=== PATIENT | male | born 1965 | race Caucasian/White ===

== ENCOUNTER 2017-06-19 10:01 | Inpatient (IN) | payer OTHER ==
[2017-06-19 11:59] VITALS: BMI 29.5
--- NOTE | 2017-06-19 12:17 | HP ---
COWS - Scale Resting Pulse: 0= [place] 80 or Below Sweatin=Flushed/Facial Moisture Restless Observation: 1= Difficult to Sit Still Pupil Size: 0= Normal to Room Light Bone or Joint Aches: 2= Severe Diffuse Aches Runny Nose/ Eye Tearin= Runny Nose/Eyes GI Upset > 30mins: 2= Nausea/Diarrhea Tremor Observation: 2= Slight Tremor Visible Yawning Observation: 2= >3x During Session Anxiety or Irritability: 2=Irritable/Anxious Goose Flesh Skin: 3=Piloerection COWS Score: 18 Admission ROS S - HPI Chief Complaint: I need help to stop using heroin. Allergies/Adverse Reactions: Allergies Allergy/AdvReac Type Severity Reaction Status Date / Time No Known Allergies Allergy Verified 06/19/17 12:03 History of Present Illness: pt is a 51yr old male with a history of opioid dependence seeking detox for treatment. Exam Limitations: No Limitations - Ebola screening Have you traveled outside of the country in the last 21 days: No Have you had contact with anyone from an Ebola affected area: No Have you been sick,other than usual withdrawal symptoms: No Do you have a fever: No - Review of Systems Constitutional: Chills, Diaphoresis, Night Sweats EENT: reports: Blurred Vision, Tearing, Nose Congestion Respiratory: reports: Cough Cardiac: reports: No Symptoms Reported GI: reports: Constipated, Diarrhea, Nausea, Poor Appetite, Poor Fluid Intake : reports: No Symptoms Reported Musculoskeletal: reports: Back Pain, Joint Pain, Muscle Pain Integumentary: reports: Flushing, Sweating Neuro: reports: Tingling, Tremors Endocrine: reports: Excessive Sweating, Flushing, Intolerance to Cold, Intolerance to Heat Hematology: reports: No Symptoms Reported Psychiatric: reports: Judgement Intact, Mood/Affect Appropiate, Orientated x3, Agitated, Anxious Other Systems: Reviewed and Negative Patient History - Patient Medical History Hx Anemia: No Hx Asthma: Yes Hx Chronic Obstructive Pulmonary Disease (COPD): No Hx Cancer: No Hx Cardiac Disorders: No Hx Congestive Heart Failure: No Hx Hypertension: No Hx Hypercholesterolemia: No Hx Pacemaker: No HX Cerebrovascular Accident: No Hx Seizures: No Hx Dementia: No Hx Diabetes: No Hx Gastrointestinal Disorders: No Hx Liver Disease: No Hx Genitourinary Disorders: No Hx Sexually Transmitted Disorders: No Hx Renal Disease (ESRD): No Hx Thyroid Disease: No Hx Human Immunodeficiency Virus (HIV): No (negative) Hx Hepatitis C: No Hx Depression: Yes Hx Suicide Attempt: No (denies) Hx Bipolar Disorder: Yes (gives some hx. but not ever medicated ) Hx Schizophrenia: No - Patient Surgical History Past Surgical History: Yes Hx Neurologic Surgery: No Hx Cataract Extraction: No Hx Cardiac Surgery: No Hx Lung Surgery: No Hx Breast Surgery: No Hx Breast Biopsy: No Hx Abdominal Surgery: No Hx Appendectomy: No Hx Cholecystectomy: No Hx Genitourinary Surgery: No Hx Section: No Hx Orthopedic Surgery: Yes (age 15, L knee surgery) Other Surgical History: L knee sx at age 15 yrs old Anesthesia Reaction: No - PPD History Previous Implant?: Yes Documented Results: Positive w/o proof PPD to be Administered?: No - Reproductive History Patient is a Female of Child Bearing Age (11 -55 yrs old): No - Smoking Cessation Smoking history: Current every day smoker Have you smoked in the past 12 months: Yes Aproximately how many cigarettes per day: 10 Hx Chewing Tobacco Use: No Initiated information on smoking cessation: Yes 'Breaking Loose' booklet given: 06/19/17 - Substance & Tx. History Hx Alcohol Use: Yes Hx Substance Use: Yes Substance Use Type: Cocaine, Heroin Hx Substance Use Treatment: Yes (last detox [facility] 2013) - Substances Abused Cocaine Route: Injection Frequency: Daily Amount used: $90 Age of first use: 15 Date of Last Use: 06/18/17 Heroin Route: Injection Frequency: Daily Amount used: 7 bags Age of first use: 12 Date of Last Use: 06/18/17 Family Disease History - Family Disease History Family History: Denies Family Disease History: Other: Father (etoh/drug abuse), Mother (etoh/drug abuse ) Admission Physical Exam BHS - Vital Signs Vital Signs: Vital Signs - 24 hr 06/19/17 11:58 Temperature 98.6 F Pulse Rate 72 Respiratory 20 Rate Blood Pressure 167/89 - Physical General Appearance: Yes: Appropriately Dressed, Moderate Distress, Tremorous, Irritable, Sweating, Anxious HEENTM: Yes: Normal Voice, Nasal Congestion, Rhinorrhea Respiratory: Yes: Lungs Clear, Normal Breath Sounds, No Respiratory Distress Neck: Yes: No masses,lesions,Nodules Breast: Yes: Within Normal Limits Cardiology: Yes: Regular Rhythm, Regular Rate, S1, S2 Abdominal: Yes: Normal Bowel Sounds, Non Tender, Soft Genitourinary: Yes: Within Normal Limits Back: Yes: Normal Inspection Musculoskeletal: Yes: full range of Motion Extremities: Yes: Normal Inspection, Tremors Neurological: Yes: Fully Oriented, Alert, Normal Response Integumentary: Yes: Normal Color, Diaphoresis, Track [place] Lymphatic: Yes: Within Normal Limits - Diagnostic (1) Opioid dependence with withdrawal Current Visit: Yes Status: Chronic (2) Hepatitis C carrier Current Visit: Yes Status: Chronic (3) Low back pain Current Visit: Yes Status: Chronic (4) Cocaine dependence Current Visit: Yes Status: Acute Qualifiers: Substance use status: uncomplicated Qualified Code(s): F14.20 - Cocaine dependence, uncomplicated (5) Nicotine dependence Current Visit: Yes Status: Chronic Qualifiers: Nicotine product type: cigarettes Cleared for Admission [facility] - Detox or Rehab [facility] Level of Care: Medically Managed Detox Regimen/Protocol: Methadone [facility] Breath Alcohol Content Breath Alcohol Content: 0 Urine Drug Screen - Results Drug Screen Negative: No Urine Drug Screen Results: JESUS MANUEL-Cocaine, OPI-Opiates
[2017-06-19] MEDS ORDERED: LOPERAMIDE HCL 2 MG CAPSULE PO PRN (12:23)
[2017-06-19] MEDS ORDERED: MAGNESIUM CITRATE 300 ML BOTTLE PO PRN (12:23)
[2017-06-19] MEDS ORDERED: P-EPHED 60MG/TRIPROLIDI 2.5MG TABLET PO PRN (12:23)
[2017-06-19] MEDS ORDERED: NICOTINE POLACRILEX 4 MG GUM BUC PRN (12:23)
[2017-06-19] MEDS ORDERED: MENTHOL/PHENOL 1 EACH UD MM PRN (12:23)
[2017-06-19] MEDS ORDERED: MAGNESIUM HYDROX 2400MG/30ML ORAL SUSPENSION 30 ML CUP PO PRN (12:23)
[2017-06-19] MEDS ORDERED: MAG HYDROX/AL HYDROX/SIMETH 30 ML UNIT-DOSE CUP PO PRN (12:23)
[2017-06-19] MEDS ORDERED: ALBUTEROL SO4 18 GM HFA INHALER IH PRN (12:24)
[2017-06-19] MEDS ORDERED: METHADONE HCL 10 MG TABLET (FOR DETOX USE ONLY) PO ONE ×2 (13:00→23:00)
[2017-06-19] MEDS: diazePAM 5 MG TABLET PO PRN (13:35)
[2017-06-19] MEDS: hydrOXYzine PAMOATE 50 MG CAPSULE (FP) PO PRN (15:14)
[2017-06-19 17:12] LABS: URINE APPEARANCE CLEAR; URINE BILIRUBIN NEGATIVE (NEGATIVE); URINE BLOOD NEGATIVE (NEGATIVE); URINE COLOR YELLOW; URINE GLUCOSE (UA) NEGATIVE (NEGATIVE); URINE KETONE NEGATIVE (NEGATIVE); URINE LEUK ESTERASE NEGATIVE (NEGATIVE); URINE NITRITE NEGATIVE (NEGATIVE); URINE PROTEIN NEGATIVE (NEGATIVE)
[2017-06-19] MEDS: THIAMINE HCL 100 MG TABLET (FP) PO SCH (22:28)
[2017-06-19] MEDS: LIDOCAINE PATCH REMOVAL MC SCH (22:28)
[2017-06-20] MEDS: diazePAM 5 MG TABLET PO PRN ×4 (04:20→22:48)
[2017-06-20] MEDS: guaiFENesin/D-METHORPHAN HB 10 ML UNIT-DOSE CUPS PO PRN ×2 (04:21→18:06)
[2017-06-20] MEDS: hydrOXYzine PAMOATE 50 MG CAPSULE (FP) PO PRN ×2 (07:40→22:48)
[2017-06-20] MEDS: IBUPROFEN 400 MG TABLET (FP) PO PRN (08:49)
[2017-06-20] MEDS ORDERED: cloNIDine HCL 0.1 MG TABLET PO ONE (08:52)
[2017-06-20] MEDS ORDERED: CYCLOBENZAPRINE HCL 10 MG TABLET (FP) PO ONE (08:53)
[2017-06-20] MEDS: PRENATAL VITAMINS W/ FOLIC ACID TABLET (FP) PO SCH (09:51)
[2017-06-20] MEDS: cloNIDine HCL 0.1 MG TABLET PO SCH ×2 (09:52→22:48)
[2017-06-20] MEDS: LIDOCAINE 5% TOPICAL PATCH TP SCH (09:54)
[2017-06-20] MEDS: NICOTINE 21 MG/24 HOURS TOPICAL PATCH TD SCH (09:54)
[2017-06-20] MEDS ORDERED: METHADONE HCL 10 MG TABLET (FOR DETOX USE ONLY) PO ONE (10:00)
[2017-06-20 10:21] LABS: HEMATOCRIT 34.7 % (35.4-49); HEMOGLOBIN 11.7 GM/dL (11.7-16.9); MCH 30.3 pg (25.7-33.7); MCHC 33.6 g/dl (32.0-35.9); MEAN CELL VOLUME 90.2 fl (80-96); MEAN PLT VOLUME 8.1 fl (7.5-11.1); PLATELET COUNT 166 K/MM3 (134-434); RBC 3.85 M/mm3 (4.00-5.60); RDW 14.4 % (11.9-15.9); WHITE BLOOD COUNT 4.8 K/mm3 (4.0-10.0)
[2017-06-20 10:23] LABS: ALBUMIN 3.4 g/dl (3.4-5.0); ANION GAP 8 (8-16); BLOOD UREA NITROGEN 22 mg/dL (7-18); CHLORIDE 107 mmol/L (98-107); CO2 23 mmol/L (21-32); GLUCOSE,RANDOM 98 mg/dL (74-106); POTASSIUM 4.2 mmol/L (3.5-5.1); SGOT/AST 37 U/L (15-37); SGPT/ALT 35 U/L (12-78); SODIUM 138 mmol/L (136-145)
[2017-06-20 10:25] LABS: ALK PHOS 93 U/L (45-117); BILIRUBIN,TOTAL 0.5 mg/dL (0.2-1.0); CALCIUM 8.2 mg/dL (8.5-10.1); CREATININE 0.9 mg/dL (0.7-1.3); TOT PROT 7.2 g/dl (6.4-8.2)
--- NOTE | 2017-06-20 11:11 | PN ---
BHS COWS - Scale Resting Pulse: 0= [place] 80 or Below Sweatin= Chills/Flushing Restless Observation: 3= Extraneous Movement Pupil Size: 1= Pupils >than Normal Bone or Joint Aches: 2= Severe Diffuse Aches Runny Nose/ Eye Tearin= Runny Nose/Eyes GI Upset > 30mins: 3= Vomiting/Diarrhea Tremor Observation of Outstretched Hands: 2= Slight Tremor Visible Yawning Observation: 1= 1-2x During Session Anxiety or Irritability: 2=Irritable/Anxious Goose Flesh Skin: 0=Smooth Skin COWS Score: 17 S Progress Note (SOAP) Subjective: ALERT,IRRITABLE,ANXIOUS,INTERRUPTED SLEEP,PAIN IN THE BODY AND BACK,TRMOR Objective: 06/20/17 11:08 Vital Signs Temperature 98.1 F 06/20/17 10:09 Pulse Rate 79 06/20/17 10:09 Respiratory Rate 20 06/20/17 10:09 Blood Pressure 150/89 06/20/17 10:09 O2 Sat by Pulse Oximetry (%) EKG NSR,NORMAL ECG Laboratory Last Values WBC 4.8 K/mm3 (4.0-10.0) 06/20/17 07:30 RBC 3.85 M/mm3 (4.00-5.60) L 06/20/17 07:30 Hgb 11.7 GM/dL (11.7-16.9) 06/20/17 07:30 Hct 34.7 % (35.4-49) L 06/20/17 07:30 MCV 90.2 fl (80-96) 06/20/17 07:30 MCH 30.3 pg (25.7-33.7) 06/20/17 07:30 MCHC 33.6 g/dl (32.0-35.9) 06/20/17 07:30 RDW 14.4 % (11.9-15.9) 06/20/17 07:30 Plt Count 166 K/MM3 (134-434) 06/20/17 07:30 MPV 8.1 fl (7.5-11.1) D 06/20/17 07:30 Sodium 138 mmol/L (136-145) 06/20/17 07:30 Potassium 4.2 mmol/L (3.5-5.1) 06/20/17 07:30 Chloride 107 mmol/L (98-107) 06/20/17 07:30 Carbon Dioxide 23 mmol/L (21-32) 06/20/17 07:30 Anion Gap 8 (8-16) 06/20/17 07:30 BUN 22 mg/dL (7-18) H D 06/20/17 07:30 Creatinine 0.9 mg/dL (0.7-1.3) 06/20/17 07:30 Creat Clearance w eGFR > 60 (>60) 06/20/17 07:30 Random Glucose 98 mg/dL (74-106) D 06/20/17 07:30 Calcium 8.2 mg/dL (8.5-10.1) L 06/20/17 07:30 Total Bilirubin 0.5 mg/dL (0.2-1.0) D 06/20/17 07:30 AST 37 U/L (15-37) D 06/20/17 07:30 ALT 35 U/L (12-78) D 06/20/17 07:30 Alkaline Phosphatase 93 U/L (45-117) D 06/20/17 07:30 Total Protein 7.2 g/dl (6.4-8.2) 06/20/17 07:30 Albumin 3.4 g/dl (3.4-5.0) 06/20/17 07:30 Urine Color Yellow 06/19/17 15:50 Urine Appearance Clear 06/19/17 15:50 Urine pH 5.0 (5.0-8.0) 06/19/17 15:50 Ur Specific [place] 1.025 (1.001-1.035) 06/19/17 15:50 Urine Protein Negative (NEGATIVE) 06/19/17 15:50 Urine Glucose (UA) Negative (NEGATIVE) 06/19/17 15:50 Urine Ketones Negative (NEGATIVE) 06/19/17 15:50 Urine Blood Negative (NEGATIVE) 06/19/17 15:50 Urine Nitrite Negative (NEGATIVE) 06/19/17 15:50 Urine Bilirubin Negative (NEGATIVE) 06/19/17 15:50 Urine Urobilinogen 2.0 mg/dL (0.2-1.0) 06/19/17 15:50 Ur Leukocyte Esterase Negative (NEGATIVE) 06/19/17 15:50 06/20/17 11:10 LABS PENDING Assessment: 06/20/17 11:10 WITHDRAWAL SYMPTOM Plan: CONTINUE DETOX,ENCOURAGE ORAL FLUID
--- NOTE | 2017-06-20 12:15 | EKG ---
Test Reason : Blood Pressure : / mmHG Vent. Rate : 074 BPM Atrial Rate : 074 BPM P-R Int : 168 ms QRS Dur : 082 ms QT Int : 400 ms P-R-T Axes : 043 071 056 degrees QTc Int : 444 ms NORMAL SINUS RHYTHM NORMAL ECG NO PREVIOUS ECGS AVAILABLE Confirmed by LEANNA MARCH MD ([id number]) on 06/20/2017 12:14:33 PM Referred By: Confirmed By:LEANNA MARCH MD
[2017-06-20] MEDS: CYCLOBENZAPRINE HCL 10 MG TABLET (FP) PO PRN (18:06)
[2017-06-20] MEDS: THIAMINE HCL 100 MG TABLET (FP) PO SCH (22:48)
[2017-06-20] MEDS: LIDOCAINE PATCH REMOVAL MC SCH (22:51)
[2017-06-21] MEDS: guaiFENesin/D-METHORPHAN HB 10 ML UNIT-DOSE CUPS PO PRN ×2 (00:45→21:16)
[2017-06-21] MEDS: CYCLOBENZAPRINE HCL 10 MG TABLET (FP) PO PRN ×2 (01:14→21:14)
[2017-06-21] MEDS: diazePAM 5 MG TABLET PO PRN ×2 (02:34→21:14)
[2017-06-21] MEDS: hydrOXYzine PAMOATE 50 MG CAPSULE (FP) PO PRN ×2 (04:18→23:55)
[2017-06-21] MEDS: IBUPROFEN 400 MG TABLET (FP) PO PRN ×2 (05:07→21:14)
[2017-06-21] MEDS ORDERED: METHADONE HCL 5 MG TABLET (FOR DETOX USE ONLY) PO ONE (10:00)
[2017-06-21] MEDS: LIDOCAINE 5% TOPICAL PATCH TP SCH (11:00)
[2017-06-21] MEDS: cloNIDine HCL 0.1 MG TABLET PO SCH ×2 (11:00→21:14)
[2017-06-21] MEDS: NICOTINE 21 MG/24 HOURS TOPICAL PATCH TD SCH (11:00)
[2017-06-21] MEDS: PRENATAL VITAMINS W/ FOLIC ACID TABLET (FP) PO SCH (11:00)
--- NOTE | 2017-06-21 11:30 | PN ---
BHS COWS - Scale Resting Pulse: 0= [place] 80 or Below Sweatin= Chills/Flushing Restless Observation: 3= Extraneous Movement Pupil Size: 2= Moderately Dilated Bone or Joint Aches: 2= Severe Diffuse Aches Runny Nose/ Eye Tearin= Runny Nose/Eyes GI Upset > 30mins: 2= Nausea/Diarrhea Tremor Observation of Outstretched Hands: 2= Slight Tremor Visible Yawning Observation: 1= 1-2x During Session Anxiety or Irritability: 2=Irritable/Anxious Goose Flesh Skin: 0=Smooth Skin COWS Score: 17 BHS Progress Note (SOAP) Subjective: ALERT,IRRITABLE,ANXIOUS,INTERRUPTED SLEEP,TREMOR Objective: 06/21/17 11:29 Vital Signs Temperature 98.9 F 06/21/17 11:23 Pulse Rate 68 06/21/17 11:23 Respiratory Rate 18 06/21/17 11:23 Blood Pressure 142/86 06/21/17 11:23 O2 Sat by Pulse Oximetry (%) Laboratory Last Values WBC 4.8 K/mm3 (4.0-10.0) 06/20/17 07:30 RBC 3.85 M/mm3 (4.00-5.60) L 06/20/17 07:30 Hgb 11.7 GM/dL (11.7-16.9) 06/20/17 07:30 Hct 34.7 % (35.4-49) L 06/20/17 07:30 MCV 90.2 fl (80-96) 06/20/17 07:30 MCH 30.3 pg (25.7-33.7) 06/20/17 07:30 MCHC 33.6 g/dl (32.0-35.9) 06/20/17 07:30 RDW 14.4 % (11.9-15.9) 06/20/17 07:30 Plt Count 166 K/MM3 (134-434) 06/20/17 07:30 MPV 8.1 fl (7.5-11.1) D 06/20/17 07:30 Sodium 138 mmol/L (136-145) 06/20/17 07:30 Potassium 4.2 mmol/L (3.5-5.1) 06/20/17 07:30 Chloride 107 mmol/L (98-107) 06/20/17 07:30 Carbon Dioxide 23 mmol/L (21-32) 06/20/17 07:30 Anion Gap 8 (8-16) 06/20/17 07:30 BUN 22 mg/dL (7-18) H D 06/20/17 07:30 Creatinine 0.9 mg/dL (0.7-1.3) 06/20/17 07:30 Creat Clearance w eGFR > 60 (>60) 06/20/17 07:30 Random Glucose 98 mg/dL (74-106) D 06/20/17 07:30 Calcium 8.2 mg/dL (8.5-10.1) L 06/20/17 07:30 Total Bilirubin 0.5 mg/dL (0.2-1.0) D 06/20/17 07:30 AST 37 U/L (15-37) D 06/20/17 07:30 ALT 35 U/L (12-78) D 06/20/17 07:30 Alkaline Phosphatase 93 U/L (45-117) D 06/20/17 07:30 Total Protein 7.2 g/dl (6.4-8.2) 06/20/17 07:30 Albumin 3.4 g/dl (3.4-5.0) 06/20/17 07:30 Urine Color Yellow 06/19/17 15:50 Urine Appearance Clear 06/19/17 15:50 Urine pH 5.0 (5.0-8.0) 06/19/17 15:50 Ur Specific [place] 1.025 (1.001-1.035) 06/19/17 15:50 Urine Protein Negative (NEGATIVE) 06/19/17 15:50 Urine Glucose (UA) Negative (NEGATIVE) 06/19/17 15:50 Urine Ketones Negative (NEGATIVE) 06/19/17 15:50 Urine Blood Negative (NEGATIVE) 06/19/17 15:50 Urine Nitrite Negative (NEGATIVE) 06/19/17 15:50 Urine Bilirubin Negative (NEGATIVE) 06/19/17 15:50 Urine Urobilinogen 2.0 mg/dL (0.2-1.0) 06/19/17 15:50 Ur Leukocyte Esterase Negative (NEGATIVE) 06/19/17 15:50 RPR Titer Nonreactive (NONREACTIVE) 06/20/17 07:30 HIV 1&2 Antibody Screen Negative 06/19/17 07:30 HIV P24 Antigen Negative 06/19/17 07:30 Assessment: 06/21/17 11:30 WITHDRAWAL SYMPTOM Plan: CONTINUE DETOX,ENCOURAGE ORAL FLUID
[2017-06-21] MEDS: THIAMINE HCL 100 MG TABLET (FP) PO SCH (21:14)
[2017-06-21] MEDS: LIDOCAINE PATCH REMOVAL MC SCH (22:41)
[2017-06-21] MEDS: ACETAMINOPHEN 325 MG TABLET (FP) PO PRN (23:54)
[2017-06-22] MEDS: diazePAM 5 MG TABLET PO PRN (03:23)
[2017-06-22] MEDS ORDERED: METHADONE HCL 5 MG TABLET (FOR DETOX USE ONLY) PO ONE (10:00)
[2017-06-22] MEDS: PRENATAL VITAMINS W/ FOLIC ACID TABLET (FP) PO SCH (10:50)
[2017-06-22] MEDS: cloNIDine HCL 0.1 MG TABLET PO SCH ×2 (10:50→22:55)
[2017-06-22] MEDS: LIDOCAINE 5% TOPICAL PATCH TP SCH (10:51)
[2017-06-22] MEDS: NICOTINE 21 MG/24 HOURS TOPICAL PATCH TD SCH (10:51)
[2017-06-22] MEDS: ACETAMINOPHEN 325 MG TABLET (FP) PO PRN ×2 (10:54→17:30)
[2017-06-22] MEDS: CYCLOBENZAPRINE HCL 10 MG TABLET (FP) PO PRN ×2 (10:54→22:55)
[2017-06-22] MEDS ORDERED: LIDOCAINE VISCOUS 2% ORAL/TOP 20 ML UNIT-DOSE CUP MM ONE (11:21)
[2017-06-22] MEDS: IBUPROFEN 400 MG TABLET (FP) PO PRN ×2 (11:23→22:58)
[2017-06-22] MEDS ORDERED: LIDOCAINE VISCOUS 2% ORAL/TOP 20 ML UNIT-DOSE CUP MM PRN (12:39)
--- NOTE | 2017-06-22 12:43 | PN ---
BHS Progress Note (SOAP) Subjective: sleepness shakes toothache Objective: 06/22/17 12:41 eating in dayroom, able to swallow tender to lower molar area No acute distress noted Assessment: 06/22/17 12:42 withdrawal sx toothache Plan: continue detox Lidocaine with and swallow
[2017-06-22] MEDS: guaiFENesin/D-METHORPHAN HB 10 ML UNIT-DOSE CUPS PO PRN (17:29)
[2017-06-22] MEDS: hydrOXYzine PAMOATE 50 MG CAPSULE (FP) PO PRN ×2 (19:08→22:55)
[2017-06-22] MEDS: THIAMINE HCL 100 MG TABLET (FP) PO SCH (22:54)
[2017-06-22] MEDS: LIDOCAINE PATCH REMOVAL MC SCH (22:55)
[2017-06-23] MEDS: hydrOXYzine PAMOATE 50 MG CAPSULE (FP) PO PRN (02:39)
[2017-06-23] MEDS ORDERED: METHADONE HCL 10 MG TABLET (FOR DETOX USE ONLY) PO ONE (10:00)
[2017-06-23] MEDS: cloNIDine HCL 0.1 MG TABLET PO SCH ×2 (10:45→22:26)
[2017-06-23] MEDS: PRENATAL VITAMINS W/ FOLIC ACID TABLET (FP) PO SCH (10:45)
[2017-06-23] MEDS: LIDOCAINE 5% TOPICAL PATCH TP SCH (10:46)
[2017-06-23] MEDS: NICOTINE 21 MG/24 HOURS TOPICAL PATCH TD SCH (10:46)
[2017-06-23] MEDS: IBUPROFEN 400 MG TABLET (FP) PO PRN ×2 (10:49→19:44)
[2017-06-23] MEDS: guaiFENesin/D-METHORPHAN HB 10 ML UNIT-DOSE CUPS PO PRN ×2 (10:49→22:27)
--- NOTE | 2017-06-23 11:40 | PN ---
S Progress Note (SOAP) Subjective: alert oriented x 3 mild joint aches no sweat calm less irritable Objective: 06/23/17 11:39 Vital Signs Temperature 97.5 F L 06/23/17 06:00 Pulse Rate 64 06/23/17 06:00 Respiratory Rate 18 06/23/17 06:00 Blood Pressure 98/66 06/23/17 06:00 O2 Sat by Pulse Oximetry (%) Laboratory Last Values WBC 4.8 K/mm3 (4.0-10.0) 06/20/17 07:30 RBC 3.85 M/mm3 (4.00-5.60) L 06/20/17 07:30 Hgb 11.7 GM/dL (11.7-16.9) 06/20/17 07:30 Hct 34.7 % (35.4-49) L 06/20/17 07:30 MCV 90.2 fl (80-96) 06/20/17 07:30 MCH 30.3 pg (25.7-33.7) 06/20/17 07:30 MCHC 33.6 g/dl (32.0-35.9) 06/20/17 07:30 RDW 14.4 % (11.9-15.9) 06/20/17 07:30 Plt Count 166 K/MM3 (134-434) 06/20/17 07:30 MPV 8.1 fl (7.5-11.1) D 06/20/17 07:30 Sodium 138 mmol/L (136-145) 06/20/17 07:30 Potassium 4.2 mmol/L (3.5-5.1) 06/20/17 07:30 Chloride 107 mmol/L (98-107) 06/20/17 07:30 Carbon Dioxide 23 mmol/L (21-32) 06/20/17 07:30 Anion Gap 8 (8-16) 06/20/17 07:30 BUN 22 mg/dL (7-18) H D 06/20/17 07:30 Creatinine 0.9 mg/dL (0.7-1.3) 06/20/17 07:30 Creat Clearance w eGFR > 60 (>60) 06/20/17 07:30 Random Glucose 98 mg/dL (74-106) D 06/20/17 07:30 Calcium 8.2 mg/dL (8.5-10.1) L 06/20/17 07:30 Total Bilirubin 0.5 mg/dL (0.2-1.0) D 06/20/17 07:30 AST 37 U/L (15-37) D 06/20/17 07:30 ALT 35 U/L (12-78) D 06/20/17 07:30 Alkaline Phosphatase 93 U/L (45-117) D 06/20/17 07:30 Total Protein 7.2 g/dl (6.4-8.2) 06/20/17 07:30 Albumin 3.4 g/dl (3.4-5.0) 06/20/17 07:30 Urine Color Yellow 06/19/17 15:50 Urine Appearance Clear 06/19/17 15:50 Urine pH 5.0 (5.0-8.0) 06/19/17 15:50 Ur Specific [place] 1.025 (1.001-1.035) 06/19/17 15:50 Urine Protein Negative (NEGATIVE) 06/19/17 15:50 Urine Glucose (UA) Negative (NEGATIVE) 06/19/17 15:50 Urine Ketones Negative (NEGATIVE) 06/19/17 15:50 Urine Blood Negative (NEGATIVE) 06/19/17 15:50 Urine Nitrite Negative (NEGATIVE) 06/19/17 15:50 Urine Bilirubin Negative (NEGATIVE) 06/19/17 15:50 Urine Urobilinogen 2.0 mg/dL (0.2-1.0) 06/19/17 15:50 Ur Leukocyte Esterase Negative (NEGATIVE) 06/19/17 15:50 RPR Titer Nonreactive (NONREACTIVE) 06/20/17 07:30 HIV 1&2 Antibody Screen Negative 06/19/17 07:30 HIV P24 Antigen Negative 06/19/17 07:30 lab noted Assessment: 06/23/17 11:39 mild withdrawal sx Plan: medically supervised detox
[2017-06-23] MEDS: ACETAMINOPHEN 325 MG TABLET (FP) PO PRN (13:01)
[2017-06-23] MEDS: CYCLOBENZAPRINE HCL 10 MG TABLET (FP) PO PRN (13:01)
[2017-06-23] MEDS: METHYL SALICYLATE/MENTHOL OINT 30 GM TUBE TP SCH (14:00)
[2017-06-23] MEDS: THIAMINE HCL 100 MG TABLET (FP) PO SCH (22:26)
[2017-06-24] MEDS: LIDOCAINE PATCH REMOVAL MC SCH (00:05)
[2017-06-24] MEDS: METHYL SALICYLATE/MENTHOL OINT 30 GM TUBE TP SCH (00:05)
[2017-06-24] MEDS: hydrOXYzine PAMOATE 50 MG CAPSULE (FP) PO PRN (00:28)
[2017-06-24] MEDS ORDERED: METHADONE HCL 5 MG TABLET (FOR DETOX USE ONLY) PO ONE (06:00)
[2017-06-24 06:18] VITALS: TEMP 97.7
--- NOTE | 2017-06-24 08:49 | DS ---
[facility] Detox Discharge Summary Admission Date: 06/19/17 Discharge Date: 06/24/17 - History Present History: Cocaine Dependence, Opioid Dependence Additional Comments: follow up with after care program as arrangement Pertinent Past History: hepatitis c low back pain nicotine dependence - Physical Exam Results Vital Signs: Vital Signs Temperature 97.7 F 06/24/17 06:17 Pulse Rate 67 06/24/17 06:17 Respiratory Rate 18 06/24/17 06:17 Blood Pressure 118/68 06/24/17 06:17 O2 Sat by Pulse Oximetry (%) Pertinent Admission Physical Exam Findings: withdrawal symptom and finding - Treatment Hospital Course: Detox Protocol Followed, Detoxed Safely, Responded well, Discharged Condition Good, Rehab Referral Accepted Patient has Accepted a Rehab Referral to: [facility] - Medication Discharge Medications: Ambulatory Orders Albuterol Sulfate Inhaler - [Ventolin Hfa Inhaler -] 2 inh PO Q4H PRN 06/19/17 - Diagnosis (1) Opioid dependence with withdrawal Current Visit: Yes Status: Chronic (2) Cocaine dependence Current Visit: Yes Status: Acute Qualifiers: Substance use status: uncomplicated Qualified Code(s): F14.20 - Cocaine dependence, uncomplicated (3) Low back pain Current Visit: Yes Status: Chronic (4) Nicotine dependence Current Visit: Yes Status: Chronic Qualifiers: Nicotine product type: cigarettes (5) arthritis left knee Current Visit: No Status: Active (6) s/p artroscopic surgery left knee post trauma Current Visit: No Status: Active (7) Schizoaffective disorder Current Visit: No Status: Acute - AMA Did Patient Leave Against Medical Advice: No
[2017-06-24] MEDS: LIDOCAINE 5% TOPICAL PATCH TP SCH (09:20)
[2017-06-24] MEDS: PRENATAL VITAMINS W/ FOLIC ACID TABLET (FP) PO SCH (09:21)
[2017-06-24] MEDS: cloNIDine HCL 0.1 MG TABLET PO SCH (09:22)
[2017-06-24] MEDS: NICOTINE 21 MG/24 HOURS TOPICAL PATCH TD SCH (09:22)
[2017-06-24 10:39] VITALS: BP 122/73; PULSE 93
== END 2017-06-24 09:23 | disposition home or self-care (01) | DRG 773 ==
LOC: YASAS 10:01 → Y6N 12:48
PROVIDERS: ADMIT Internal Medicine; ATTEND Internal Medicine
PROC: HZ2ZZZZ Detoxification Services for Substance Abuse Treatment (ICD-10-PCS; principal; 2017-06-19)
DX: F11.23 Opioid dependence with withdrawal (principal); F14.20 Cocaine dependence, uncomplicated; F17.210 Nicotine dependence, cigarettes, uncomplicated; F25.9 Schizoaffective disorder, unspecified; M54.5 Low back pain; G89.29 Other chronic pain; M13.861 Other specified arthritis, right knee; K08.89 Other specified disorders of teeth and supporting structures; J45.909 Unspecified asthma, uncomplicated; B18.2 Chronic viral hepatitis C
CPT/HCPCS: 36415; 71046-TC-FY; 80053; 81003; 85027; 86593; 87389; 93005; 93010; J0735

== ENCOUNTER 2017-08-12 09:28 | Inpatient (IN) | payer OTHER ==
[2017-08-12 09:55] VITALS: BMI 28.8
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
[2017-08-12] MEDS ORDERED: MENTHOL/PHENOL 1 EACH UD MM PRN (12:34)
[2017-08-12] MEDS ORDERED: MAGNESIUM HYDROX 2400MG/30ML ORAL SUSPENSION 30 ML CUP PO PRN (12:34)
[2017-08-12] MEDS ORDERED: P-EPHED 60MG/TRIPROLIDI 2.5MG TABLET PO PRN (12:34)
[2017-08-12] MEDS ORDERED: MAGNESIUM CITRATE 300 ML BOTTLE PO PRN (12:34)
[2017-08-12] MEDS ORDERED: guaiFENesin/D-METHORPHAN HB 10 ML UNIT-DOSE CUPS PO PRN (12:34)
[2017-08-12] MEDS ORDERED: NICOTINE POLACRILEX 2 MG GUM BC PRN (12:34)
[2017-08-12] MEDS ORDERED: MAG HYDROX/AL HYDROX/SIMETH 30 ML UNIT-DOSE CUP PO PRN (12:34)
[2017-08-12] MEDS ORDERED: METHADONE HCL 10 MG TABLET (FOR DETOX USE ONLY) PO ONE ×2 (14:15→23:00)
--- NOTE | 2017-08-12 14:26 | CONSULT ---
[facility] Psychiatric Consult - Data Date of interview: 08/12/17 Admission source: [facility] Identifying data: This ios 51 years old male, single, father of two, living with Aunt, ambulating with cane, unemployed , on SSI, with psychiatric hospitalization history, history of Schizoaffective disorder, is here for detox from Opioids, Cocaine and Nicotine. Reports long history of opiate, nicotine dependence. Substance Abuse History: Urine Drug Screen Results: JESUS MANUEL-Cocaine, OPI-Opiates. - Smoking Cessation. Smoking history: Current every day smoker. Have you smoked in the past 12 months: Yes. Aproximately how many cigarettes per day: 10. Cigars Per Day: 0. Hx Chewing Tobacco Use: No. Initiated information on smoking cessation: Yes. 'Breaking Loose' booklet given: 08/12/17. - Substance & Tx. History. Hx Alcohol Use: No. Hx Substance Use: Yes. Substance Use Type : Opiates. Hx Substance Use Treatment: Yes (06/2017 [facility]) Medical History: Asthma, HepC+, Left knee arthritis Psychiatric History: Patient reports history of Schizoaffective disorder, reports p[sychiatric admission ojn 2017 at [facility] for safety, reports no medications taking priorm to admission,. patient minimizing psychiatric history. Physical/Sexual Abuse/Trauma History: Denies Additional Comment: Urine Drug Screen Results: JESUS AMNUEL-Cocaine, OPI-Opiates. Observation. Detox Unit Care Protocol Mental Status Exam - Mental Status Exam Alert and Oriented to: Person Cognitive Function: Fair Patient Appearance: Unkempt Mood: Anxious Affect: Labile Patient Behavior: Cooperative Speech Pattern: Appropriate Voice Loudness: Normal Thought Process: Circumstantial Thought Disorder: Being Controlled Hallucinations: Denies Suicidal Ideation: Denies Homicidal Ideation: Denies Insight/Judgement: Fair Sleep: Difficulty falling asleep Appetite: Fair Muscle strength/Tone: Mild Hypotonicity Gait/Station: Shuffling Additional Comments: Observation. Detox Unit Care Protocol Psychiatric Findings - Problem List ([place] 1, 2,3) (1) Drug-induced mood disorder Current Visit: Yes Status: Acute (2) Opioid dependence with withdrawal Current Visit: Yes Status: Acute (3) Nicotine dependence Current Visit: Yes Status: Chronic Qualifiers: Nicotine product type: cigarettes Substance use status: in withdrawal Qualified Code(s): F17.213 - Nicotine dependence, cigarettes, with withdrawal (4) Schizoaffective disorder Current Visit: Yes Status: Suspected Qualifiers: Schizoaffective disorder type: bipolar Qualified Code(s): F25.0 - Schizoaffective disorder, bipolar type (5) Opioid dependence Current Visit: No Status: Active (6) Cocaine dependence Current Visit: No Status: Acute Qualifiers: Substance use status: uncomplicated Qualified Code(s): F14.20 - Cocaine dependence, uncomplicated - Initial Treatment Plan Initial Treatment Plan: Observation. Detox Unit Care Protocol
[2017-08-12] MEDS: NICOTINE 14 MG/24 HOURS TOPICAL PATCH TD SCH (14:59)
[2017-08-12] MEDS: diazePAM 5 MG TABLET PO PRN ×2 (15:00→20:28)
[2017-08-12] MEDS: IBUPROFEN 400 MG TABLET (FP) PO PRN (17:44)
[2017-08-12 20:20] LABS: URINE APPEARANCE CLEAR; URINE BILIRUBIN NEGATIVE (<2.0 mg/dL); URINE BLOOD NEGATIVE (NEGATIVE); URINE COLOR YELLOW; URINE GLUCOSE (UA) NEGATIVE (NEGATIVE); URINE KETONE NEGATIVE (NEGATIVE); URINE LEUK ESTERASE NEGATIVE (NEGATIVE); URINE NITRITE NEGATIVE (NEGATIVE); URINE PROTEIN NEGATIVE (NEGATIVE); URINE UROBILINOGEN NEGATIVE mg/dL (0.2-1.0)
[2017-08-12] MEDS: THIAMINE HCL 100 MG TABLET (FP) PO SCH (22:14)
[2017-08-12] MEDS: MELATONIN 5 MG TABLETS PO PRN (22:15)
[2017-08-13] MEDS: diazePAM 5 MG TABLET PO PRN ×3 (05:36→22:47)
[2017-08-13] MEDS ORDERED: METHADONE HCL 10 MG TABLET (FOR DETOX USE ONLY) PO ONE (10:00)
[2017-08-13 10:05] LABS: HEMATOCRIT 33.4 % (35.4-49); HEMOGLOBIN 11.6 GM/dL (11.7-16.9); MCH 31.2 pg (25.7-33.7); MCHC 34.8 g/dl (32.0-35.9); MEAN CELL VOLUME 89.7 fl (80-96); MEAN PLT VOLUME 8.7 fl (7.5-11.1); PLATELET COUNT 165 K/MM3 (134-434); RBC 3.73 M/mm3 (4.00-5.60); RDW 13.8 % (11.9-15.9); WHITE BLOOD COUNT 4.4 K/mm3 (4.0-10.0)
[2017-08-13 10:13] LABS: CHLORIDE 105 mmol/L (98-107); POTASSIUM 4.1 mmol/L (3.5-5.1); SODIUM 137 mmol/L (136-145)
--- NOTE | 2017-08-13 10:15 | EKG ---
Test Reason : Blood Pressure : / mmHG Vent. Rate : 074 BPM Atrial Rate : 074 BPM P-R Int : 162 ms QRS Dur : 088 ms QT Int : 386 ms P-R-T Axes : 033 072 061 degrees QTc Int : 428 ms NORMAL SINUS RHYTHM NORMAL ECG WHEN COMPARED WITH ECG OF 19-JUN-2017 14:37, NO SIGNIFICANT CHANGE WAS FOUND Confirmed by Mathieu Tucker MD ([id number]) on 08/13/2017 10:14:43 AM Referred By: Confirmed By:Mathieu Tucker MD
[2017-08-13] MEDS: PRENATAL VITAMINS W/ FOLIC ACID TABLET (FP) PO SCH (10:22)
[2017-08-13] MEDS: ALBUTEROL SO4 18 GM HFA INHALER IH PRN (10:23)
[2017-08-13] MEDS: NICOTINE 14 MG/24 HOURS TOPICAL PATCH TD SCH (10:23)
[2017-08-13 10:37] LABS: ALBUMIN 3.8 g/dl (3.4-5.0); ALK PHOS 97 U/L (45-117); ANION GAP 6 (8-16); BILIRUBIN,TOTAL 0.3 mg/dL (0.2-1.0); BLOOD UREA NITROGEN 22 mg/dL (7-18); CALCIUM 8.4 mg/dL (8.5-10.1); CO2 26 mmol/L (21-32); CREATININE 1.3 mg/dL (0.7-1.3); GLUCOSE,RANDOM 117 mg/dL (74-106); SGOT/AST 31 U/L (15-37); SGPT/ALT 21 U/L (12-78); TOT PROT 7.8 g/dl (6.4-8.2)
--- NOTE | 2017-08-13 12:46 | PN ---
BHS COWS - Scale Resting Pulse: 0= ME 80 or Below Sweatin= Chills/Flushing Restless Observation: 3= Extraneous Movement Pupil Size: 0= Normal to Room Light Bone or Joint Aches: 4=Acute Joint/Muscle Pain Runny Nose/ Eye Tearin= Nasal Congestion GI Upset > 30mins: 1= Stomach Cramp Tremor Observation of Outstretched Hands: 2= Slight Tremor Visible Yawning Observation: 2= >3x During Session Anxiety or Irritability: 2=Irritable/Anxious Goose Flesh Skin: 0=Smooth Skin COWS Score: 16 BHS Progress Note (SOAP) Subjective: ANXIETY,SWEATS, "I'M DOPE SICK". Objective: 08/13/17 12:46 Vital Signs Temperature 97.9 F 08/13/17 09:14 Pulse Rate 75 08/13/17 09:14 Respiratory Rate 18 08/13/17 09:14 Blood Pressure 145/81 08/13/17 09:14 O2 Sat by Pulse Oximetry (%) Laboratory Last Values WBC 4.4 K/mm3 (4.0-10.0) 08/13/17 06:15 RBC 3.73 M/mm3 (4.00-5.60) L 08/13/17 06:15 Hgb 11.6 GM/dL (11.7-16.9) L 08/13/17 06:15 Hct 33.4 % (35.4-49) L 08/13/17 06:15 MCV 89.7 fl (80-96) 08/13/17 06:15 MCH 31.2 pg (25.7-33.7) 08/13/17 06:15 MCHC 34.8 g/dl (32.0-35.9) 08/13/17 06:15 RDW 13.8 % (11.9-15.9) 08/13/17 06:15 Plt Count 165 K/MM3 (134-434) 08/13/17 06:15 MPV 8.7 fl (7.5-11.1) 08/13/17 06:15 Sodium 137 mmol/L (136-145) 08/13/17 06:15 Potassium 4.1 mmol/L (3.5-5.1) 08/13/17 06:15 Chloride 105 mmol/L (98-107) 08/13/17 06:15 Carbon Dioxide 26 mmol/L (21-32) 08/13/17 06:15 Anion Gap 6 (8-16) L 08/13/17 06:15 BUN 22 mg/dL (7-18) H 08/13/17 06:15 Creatinine 1.3 mg/dL (0.7-1.3) D 08/13/17 06:15 Creat Clearance w eGFR 57.97 (>60) 08/13/17 06:15 Random Glucose 117 mg/dL (74-106) H 08/13/17 06:15 Calcium 8.4 mg/dL (8.5-10.1) L 08/13/17 06:15 Total Bilirubin 0.3 mg/dL (0.2-1.0) D 08/13/17 06:15 AST 31 U/L (15-37) 08/13/17 06:15 ALT 21 U/L (12-78) D 08/13/17 06:15 Alkaline Phosphatase 97 U/L (45-117) 08/13/17 06:15 Total Protein 7.8 g/dl (6.4-8.2) 08/13/17 06:15 Albumin 3.8 g/dl (3.4-5.0) 08/13/17 06:15 Urine Color Yellow 08/12/17 17:30 Urine Appearance Clear 08/12/17 17:30 Urine pH 5.0 (5.0-8.0) 08/12/17 17:30 Ur Specific [place] 1.020 (1.001-1.035) 08/12/17 17:30 Urine Protein Negative (NEGATIVE) 08/12/17 17:30 Urine Glucose (UA) Negative (NEGATIVE) 08/12/17 17:30 Urine Ketones Negative (NEGATIVE) 08/12/17 17:30 Urine Blood Negative (NEGATIVE) 08/12/17 17:30 Urine Nitrite Negative (NEGATIVE) 08/12/17 17:30 Urine Bilirubin Negative (<2.0 mg/dL) 08/12/17 17:30 Urine Urobilinogen Negative mg/dL (0.2-1.0) 08/12/17 17:30 Ur Leukocyte Esterase Negative (NEGATIVE) 08/12/17 17:30 Assessment: 08/13/17 12:46 WITHDRAWAL SX Plan: CONTINUE DETOX
[2017-08-13] MEDS: IBUPROFEN 400 MG TABLET (FP) PO PRN (15:01)
[2017-08-13] MEDS: cloNIDine HCL 0.1 MG TABLET PO SCH (22:46)
[2017-08-13] MEDS: THIAMINE HCL 100 MG TABLET (FP) PO SCH (22:46)
[2017-08-13] MEDS: MELATONIN 5 MG TABLETS PO PRN (22:46)
[2017-08-14] MEDS: diazePAM 5 MG TABLET PO PRN ×3 (02:45→15:02)
[2017-08-14] MEDS: LOPERAMIDE HCL 2 MG CAPSULE PO PRN ×3 (02:45→21:34)
[2017-08-14] MEDS ORDERED: METHADONE HCL 5 MG TABLET (FOR DETOX USE ONLY) PO ONE (10:00)
[2017-08-14] MEDS: PRENATAL VITAMINS W/ FOLIC ACID TABLET (FP) PO SCH (10:34)
[2017-08-14] MEDS: NICOTINE 14 MG/24 HOURS TOPICAL PATCH TD SCH (10:35)
[2017-08-14] MEDS: cloNIDine HCL 0.1 MG TABLET PO SCH ×2 (10:35→22:52)
[2017-08-14] MEDS: ALBUTEROL SO4 18 GM HFA INHALER IH PRN (10:38)
--- NOTE | 2017-08-14 12:48 | PN ---
S COWS - Scale Resting Pulse: 1= [place] 81-100 Sweatin= Chills/Flushing Restless Observation: 3= Extraneous Movement Pupil Size: 0= Normal to Room Light Bone or Joint Aches: 4=Acute Joint/Muscle Pain Runny Nose/ Eye Tearin= Nasal Congestion GI Upset > 30mins: 0= None Tremor Observation of Outstretched Hands: 1= Tremor [place], Not Seen Yawning Observation: 1= 1-2x During Session Anxiety or Irritability: 2=Irritable/Anxious Goose Flesh Skin: 0=Smooth Skin COWS Score: 14 S Progress Note (SOAP) Subjective: ANXIETY,SWEATS/CHILLS,,FATIGUE. Objective: 08/14/17 12:47 Vital Signs Temperature 98.1 F 08/14/17 09:21 Pulse Rate 85 08/14/17 09:21 Respiratory Rate 18 08/14/17 09:21 Blood Pressure 122/73 08/14/17 09:21 O2 Sat by Pulse Oximetry (%) Laboratory Last Values WBC 4.4 K/mm3 (4.0-10.0) 08/13/17 06:15 RBC 3.73 M/mm3 (4.00-5.60) L 08/13/17 06:15 Hgb 11.6 GM/dL (11.7-16.9) L 08/13/17 06:15 Hct 33.4 % (35.4-49) L 08/13/17 06:15 MCV 89.7 fl (80-96) 08/13/17 06:15 MCH 31.2 pg (25.7-33.7) 08/13/17 06:15 MCHC 34.8 g/dl (32.0-35.9) 08/13/17 06:15 RDW 13.8 % (11.9-15.9) 08/13/17 06:15 Plt Count 165 K/MM3 (134-434) 08/13/17 06:15 MPV 8.7 fl (7.5-11.1) 08/13/17 06:15 Sodium 137 mmol/L (136-145) 08/13/17 06:15 Potassium 4.1 mmol/L (3.5-5.1) 08/13/17 06:15 Chloride 105 mmol/L (98-107) 08/13/17 06:15 Carbon Dioxide 26 mmol/L (21-32) 08/13/17 06:15 Anion Gap 6 (8-16) L 08/13/17 06:15 BUN 22 mg/dL (7-18) H 08/13/17 06:15 Creatinine 1.3 mg/dL (0.7-1.3) D 08/13/17 06:15 Creat Clearance w eGFR 57.97 (>60) 08/13/17 06:15 Random Glucose 117 mg/dL (74-106) H 08/13/17 06:15 Calcium 8.4 mg/dL (8.5-10.1) L 08/13/17 06:15 Total Bilirubin 0.3 mg/dL (0.2-1.0) D 08/13/17 06:15 AST 31 U/L (15-37) 08/13/17 06:15 ALT 21 U/L (12-78) D 08/13/17 06:15 Alkaline Phosphatase 97 U/L (45-117) 08/13/17 06:15 Total Protein 7.8 g/dl (6.4-8.2) 08/13/17 06:15 Albumin 3.8 g/dl (3.4-5.0) 08/13/17 06:15 Urine Color Yellow 08/12/17 17:30 Urine Appearance Clear 08/12/17 17:30 Urine pH 5.0 (5.0-8.0) 08/12/17 17:30 Ur Specific [place] 1.020 (1.001-1.035) 08/12/17 17:30 Urine Protein Negative (NEGATIVE) 08/12/17 17:30 Urine Glucose (UA) Negative (NEGATIVE) 08/12/17 17:30 Urine Ketones Negative (NEGATIVE) 08/12/17 17:30 Urine Blood Negative (NEGATIVE) 08/12/17 17:30 Urine Nitrite Negative (NEGATIVE) 08/12/17 17:30 Urine Bilirubin Negative (<2.0 mg/dL) 08/12/17 17:30 Urine Urobilinogen Negative mg/dL (0.2-1.0) 08/12/17 17:30 Ur Leukocyte Esterase Negative (NEGATIVE) 08/12/17 17:30 Assessment: 08/14/17 12:47 WITHDRAWAL SX Plan: CONTINUE DETOX
[2017-08-14] MEDS: IBUPROFEN 400 MG TABLET (FP) PO PRN (13:00)
[2017-08-14] MEDS: THIAMINE HCL 100 MG TABLET (FP) PO SCH (22:52)
[2017-08-15] MEDS ORDERED: DIPHENOXYLATE 2.5/ATROPINE.025 1 COMBO TABLET PO ONE (01:11)
[2017-08-15] MEDS: diazePAM 5 MG TABLET PO PRN ×2 (05:21→10:19)
[2017-08-15] MEDS: IBUPROFEN 400 MG TABLET (FP) PO PRN ×2 (06:44→22:26)
[2017-08-15] MEDS ORDERED: METHADONE HCL 5 MG TABLET (FOR DETOX USE ONLY) PO ONE (10:00)
[2017-08-15] MEDS: PRENATAL VITAMINS W/ FOLIC ACID TABLET (FP) PO SCH (10:17)
[2017-08-15] MEDS: cloNIDine HCL 0.1 MG TABLET PO SCH ×2 (10:17→22:24)
[2017-08-15] MEDS: NICOTINE 14 MG/24 HOURS TOPICAL PATCH TD SCH (10:18)
[2017-08-15] MEDS: ACETAMINOPHEN 325 MG TABLET (FP) PO PRN (10:20)
--- NOTE | 2017-08-15 14:34 | PN ---
BHS Progress Note (SOAP) Subjective: Diarrhea, Body Aches, Anxious. Objective: PATIENT A & O X 3, OBSERVED AMBULATING ON UNIT. NO ACUTE DISTRESS. 08/15/17 14:32 Vital Signs Temperature 98.5 F 08/15/17 10:00 Pulse Rate 76 08/15/17 10:00 Respiratory Rate 18 08/15/17 10:00 Blood Pressure 130/72 08/15/17 10:00 O2 Sat by Pulse Oximetry (%) Laboratory Tests 08/12/17 08/13/17 08/13/17 17:30 06:15 06:15 WBC 4.4 RBC 3.73 L Hgb 11.6 L Hct 33.4 L MCV 89.7 MCH 31.2 MCHC 34.8 RDW 13.8 Plt Count 165 MPV 8.7 Sodium 137 Potassium 4.1 Chloride 105 Carbon Dioxide 26 Anion Gap 6 L BUN 22 H Creatinine 1.3 D Creat Clearance w eGFR 57.97 Random Glucose 117 H Calcium 8.4 L Total Bilirubin 0.3 D AST 31 ALT 21 D Alkaline Phosphatase 97 Total Protein 7.8 Albumin 3.8 Urine Color Yellow Urine Appearance Clear Urine pH 5.0 Ur Specific [place] 1.020 Urine Protein Negative Urine Glucose (UA) Negative Urine Ketones Negative Urine Blood Negative Urine Nitrite Negative Urine Bilirubin Negative Urine Urobilinogen Negative Ur Leukocyte Esterase Negative RPR Titer 08/13/17 06:15 WBC RBC Hgb Hct MCV MCH MCHC RDW Plt Count MPV Sodium Potassium Chloride Carbon Dioxide Anion Gap BUN Creatinine Creat Clearance w eGFR Random Glucose Calcium Total Bilirubin AST ALT Alkaline Phosphatase Total Protein Albumin Urine Color Urine Appearance Urine pH Ur Specific [place] Urine Protein Urine Glucose (UA) Urine Ketones Urine Blood Urine Nitrite Urine Bilirubin Urine Urobilinogen Ur Leukocyte Esterase RPR Titer Nonreactive LABS NOTED. Assessment: 08/15/17 14:33 WITHDRAWAL SYMPTOMS. Plan: CONTINUE DETOX. INCREASE DAILY PO FLUID INTAKE. PRN IMMDOIUM FOR DIARRHEA.
[2017-08-15] MEDS: THIAMINE HCL 100 MG TABLET (FP) PO SCH (22:24)
[2017-08-15] MEDS: MELATONIN 5 MG TABLETS PO PRN (22:24)
[2017-08-16] MEDS: hydrOXYzine PAMOATE 50 MG CAPSULE (FP) PO PRN ×3 (06:28→21:08)
[2017-08-16] MEDS: IBUPROFEN 400 MG TABLET (FP) PO PRN (06:30)
[2017-08-16] MEDS ORDERED: METHADONE HCL 10 MG TABLET (FOR DETOX USE ONLY) PO ONE (10:00)
[2017-08-16] MEDS: cloNIDine HCL 0.1 MG TABLET PO SCH ×2 (10:36→22:25)
[2017-08-16] MEDS: PRENATAL VITAMINS W/ FOLIC ACID TABLET (FP) PO SCH (10:36)
[2017-08-16] MEDS: METHYL SALICYLATE/MENTHOL OINT 30 GM TUBE TP SCH ×2 (10:36→22:25)
[2017-08-16] MEDS: NICOTINE 14 MG/24 HOURS TOPICAL PATCH TD SCH (10:37)
--- NOTE | 2017-08-16 13:20 | PN ---
BHS Progress Note (SOAP) Subjective: Body Aches, Anxious, Diarrhea. Objective: PATIENT A & O X 3, OBSERVED AMBULATING ON UNIT. NO ACUTE DISTRESS. 08/16/17 13:15 Vital Signs Temperature 97.0 F L 08/16/17 09:29 Pulse Rate 71 08/16/17 09:29 Respiratory Rate 18 08/16/17 09:29 Blood Pressure 107/55 08/16/17 09:29 O2 Sat by Pulse Oximetry (%) Laboratory Tests 08/12/17 08/13/17 08/13/17 17:30 06:15 06:15 WBC 4.4 RBC 3.73 L Hgb 11.6 L Hct 33.4 L MCV 89.7 MCH 31.2 MCHC 34.8 RDW 13.8 Plt Count 165 MPV 8.7 Sodium 137 Potassium 4.1 Chloride 105 Carbon Dioxide 26 Anion Gap 6 L BUN 22 H Creatinine 1.3 D Creat Clearance w eGFR 57.97 Random Glucose 117 H Calcium 8.4 L Total Bilirubin 0.3 D AST 31 ALT 21 D Alkaline Phosphatase 97 Total Protein 7.8 Albumin 3.8 Urine Color Yellow Urine Appearance Clear Urine pH 5.0 Ur Specific [place] 1.020 Urine Protein Negative Urine Glucose (UA) Negative Urine Ketones Negative Urine Blood Negative Urine Nitrite Negative Urine Bilirubin Negative Urine Urobilinogen Negative Ur Leukocyte Esterase Negative RPR Titer 08/13/17 06:15 WBC RBC Hgb Hct MCV MCH MCHC RDW Plt Count MPV Sodium Potassium Chloride Carbon Dioxide Anion Gap BUN Creatinine Creat Clearance w eGFR Random Glucose Calcium Total Bilirubin AST ALT Alkaline Phosphatase Total Protein Albumin Urine Color Urine Appearance Urine pH Ur Specific [place] Urine Protein Urine Glucose (UA) Urine Ketones Urine Blood Urine Nitrite Urine Bilirubin Urine Urobilinogen Ur Leukocyte Esterase RPR Titer Nonreactive LABS NOTED. Assessment: 08/16/17 13:18 WITHDRAWAL SYMPTOMS. Plan: CONTINUE DETOX. PRN IMMODIUM FOR DIARRHEA. INCREASE DAILY PO FLUID INTAKE.
[2017-08-16] MEDS: ACETAMINOPHEN 325 MG TABLET (FP) PO PRN (21:08)
[2017-08-16] MEDS: THIAMINE HCL 100 MG TABLET (FP) PO SCH (22:25)
[2017-08-16] MEDS: MELATONIN 5 MG TABLETS PO PRN (22:25)
[2017-08-16] MEDS: NAPROXEN 250 MG TABLET (FP) PO PRN (22:27)
[2017-08-17] MEDS: NAPROXEN 250 MG TABLET (FP) PO PRN (05:28)
[2017-08-17] MEDS: ACETAMINOPHEN 325 MG TABLET (FP) PO PRN (05:44)
[2017-08-17] MEDS: hydrOXYzine PAMOATE 50 MG CAPSULE (FP) PO PRN (05:48)
[2017-08-17] MEDS ORDERED: METHADONE HCL 5 MG TABLET (FOR DETOX USE ONLY) PO ONE (06:00)
[2017-08-17 09:57] VITALS: BP 132/82; PULSE 60; TEMP 96.8
--- NOTE | 2017-08-17 16:54 | PN ---
S Progress Note (SOAP) Subjective: Patient denies any current Detox symptoms and reports that he feels well overall. Objective: PATIENT A & O X 3, OBSERVED AMBULATING ON UNIT. NO ACUTE DISTRESS. 08/17/17 16:53 Vital Signs Temperature 96.8 F L 08/17/17 09:56 Pulse Rate 60 08/17/17 09:56 Respiratory Rate 18 08/17/17 09:56 Blood Pressure 132/82 08/17/17 09:56 O2 Sat by Pulse Oximetry (%) Laboratory Tests 08/12/17 08/13/17 08/13/17 17:30 06:15 06:15 WBC 4.4 RBC 3.73 L Hgb 11.6 L Hct 33.4 L MCV 89.7 MCH 31.2 MCHC 34.8 RDW 13.8 Plt Count 165 MPV 8.7 Sodium 137 Potassium 4.1 Chloride 105 Carbon Dioxide 26 Anion Gap 6 L BUN 22 H Creatinine 1.3 D Creat Clearance w eGFR 57.97 Random Glucose 117 H Calcium 8.4 L Total Bilirubin 0.3 D AST 31 ALT 21 D Alkaline Phosphatase 97 Total Protein 7.8 Albumin 3.8 Urine Color Yellow Urine Appearance Clear Urine pH 5.0 Ur Specific [place] 1.020 Urine Protein Negative Urine Glucose (UA) Negative Urine Ketones Negative Urine Blood Negative Urine Nitrite Negative Urine Bilirubin Negative Urine Urobilinogen Negative Ur Leukocyte Esterase Negative RPR Titer 08/13/17 06:15 WBC RBC Hgb Hct MCV MCH MCHC RDW Plt Count MPV Sodium Potassium Chloride Carbon Dioxide Anion Gap BUN Creatinine Creat Clearance w eGFR Random Glucose Calcium Total Bilirubin AST ALT Alkaline Phosphatase Total Protein Albumin Urine Color Urine Appearance Urine pH Ur Specific [place] Urine Protein Urine Glucose (UA) Urine Ketones Urine Blood Urine Nitrite Urine Bilirubin Urine Urobilinogen Ur Leukocyte Esterase RPR Titer Nonreactive LABS NOTED. Assessment: 08/17/17 16:53 COMPLETION OF DETOX REGIMEN. Plan: NO BEDS AVAILABLE AT [facility], PATIENT WILL GO TO [facility] ( [facility] GARCIA.[facility] FOR THE NEXT COUPLE OF NIGHTS, THEN ADVISED TO CONTACT [facility] ADMISS[facility] DEPT. IN AM ON 08/19/2017, TO INQUIRE ABOUT POSSIBLE ADMISSION AT THAT TIME.
--- NOTE | 2017-08-17 16:58 | DS ---
[facility] Detox Discharge Summary Admission Date: 08/12/17 Discharge Date: 08/17/17 - History Present History: Cocaine Dependence, Opioid Dependence Additional Comments: NO BEDS AVAILABLE AT [facility], PATIENT TO GO TO [facility] ([facility] G[facility] FOR THE NEXT COUPLE OF NIGHT, THEN ADVISED TO CONTACT [facility] ADMISS[facility] DEPT. IN AM ON 08/19/2017, TO INQUIRE ABOUT POSSIBLE ADMISSION AT THAT TIME. PATIENT WAS DISCHARGED FROM DETOX UNIT IN STABLE MEDICAL CONDITION. Pertinent Past History: Asthma, Hep C, Depression, Schizoaffective Disorder, Nicotine Dependence. - Physical Exam Results Vital Signs: Vital Signs Temperature 96.8 F L 08/17/17 09:56 Pulse Rate 60 08/17/17 09:56 Respiratory Rate 18 08/17/17 09:56 Blood Pressure 132/82 08/17/17 09:56 O2 Sat by Pulse Oximetry (%) Pertinent Admission Physical Exam Findings: WITHDRAWAL SYMPTOMS. Laboratory Tests 08/12/17 08/13/17 08/13/17 17:30 06:15 06:15 WBC 4.4 RBC 3.73 L Hgb 11.6 L Hct 33.4 L MCV 89.7 MCH 31.2 MCHC 34.8 RDW 13.8 Plt Count 165 MPV 8.7 Sodium 137 Potassium 4.1 Chloride 105 Carbon Dioxide 26 Anion Gap 6 L BUN 22 H Creatinine 1.3 D Creat Clearance w eGFR 57.97 Random Glucose 117 H Calcium 8.4 L Total Bilirubin 0.3 D AST 31 ALT 21 D Alkaline Phosphatase 97 Total Protein 7.8 Albumin 3.8 Urine Color Yellow Urine Appearance Clear Urine pH 5.0 Ur Specific [place] 1.020 Urine Protein Negative Urine Glucose (UA) Negative Urine Ketones Negative Urine Blood Negative Urine Nitrite Negative Urine Bilirubin Negative Urine Urobilinogen Negative Ur Leukocyte Esterase Negative RPR Titer 08/13/17 06:15 WBC RBC Hgb Hct MCV MCH MCHC RDW Plt Count MPV Sodium Potassium Chloride Carbon Dioxide Anion Gap BUN Creatinine Creat Clearance w eGFR Random Glucose Calcium Total Bilirubin AST ALT Alkaline Phosphatase Total Protein Albumin Urine Color Urine Appearance Urine pH Ur Specific [place] Urine Protein Urine Glucose (UA) Urine Ketones Urine Blood Urine Nitrite Urine Bilirubin Urine Urobilinogen Ur Leukocyte Esterase RPR Titer Nonreactive LABS NOTED. - Treatment Hospital Course: Detox Protocol Followed, Detoxed Safely, Responded well, Discharged Condition Good, Rehab Referral Accepted Patient has Accepted a Rehab Referral to: [facility] (JOSE, N.Sari.) . - Medication Discharge Medications: Ambulatory Orders Albuterol Sulfate Inhaler - [Ventolin Hfa Inhaler -] 2 inh PO Q4H PRN 06/19/17 - Diagnosis (1) Nicotine dependence Status: Acute Qualifiers: Nicotine product type: cigarettes Substance use status: in withdrawal Qualified Code(s): F17.213 - Nicotine dependence, cigarettes, with withdrawal (2) Opioid dependence with withdrawal Status: Acute (3) Asthma Status: Chronic Qualifiers: Asthma severity: mild Asthma persistence: intermittent Asthma complication type: uncomplicated Qualified Code(s): J45.20 - Mild intermittent asthma, uncomplicated (4) Schizoaffective disorder Status: Suspected Qualifiers: Schizoaffective disorder type: bipolar Qualified Code(s): F25.0 - Schizoaffective disorder, bipolar type (5) Hepatitis C carrier Status: Resolved (6) Drug-induced mood disorder Status: Acute - AMA Did Patient Leave Against Medical Advice: No
== END 2017-08-17 09:50 | disposition home or self-care (01) | DRG 773 ==
LOC: YASAS 09:28 → Y3N 13:41
PROVIDERS: ADMIT Internal Medicine; ATTEND Internal Medicine
PROC: HZ2ZZZZ Detoxification Services for Substance Abuse Treatment (ICD-10-PCS; principal; 2017-08-12)
DX: F11.23 Opioid dependence with withdrawal (principal); F14.20 Cocaine dependence, uncomplicated; F17.213 Nicotine dependence, cigarettes, with withdrawal; F25.0 Schizoaffective disorder, bipolar type; F19.24 Other psychoactive substance dependence with psychoactive substance-induced mood disorder; J45.20 Mild intermittent asthma, uncomplicated; R76.11 Nonspecific reaction to tuberculin skin test without active tuberculosis
CPT/HCPCS: 36415; 80053; 81003; 85027; 86593; 93005; 93010; J0735

== ENCOUNTER 2017-10-14 11:11 | Inpatient (IN) | payer OTHER ==
[2017-10-14 11:57] VITALS: BMI 27.9
--- NOTE | 2017-10-14 15:01 | HP ---
COWS - Scale Resting Pulse: 0= [place] 80 or Below Sweatin= Chills/Flushing Restless Observation: 3= Extraneous Movement Pupil Size: 2= Moderately Dilated Bone or Joint Aches: 4=Acute Joint/Muscle Pain Runny Nose/ Eye Tearin= Constantly Teary/Runny GI Upset > 30mins: 2= Nausea/Diarrhea Tremor Observation: 2= Slight Tremor Visible Yawning Observation: 2= >3x During Session Anxiety or Irritability: 2=Irritable/Anxious Goose Flesh Skin: 0=Smooth Skin COWS Score: 22 Admission [facility] Chief Complaint: SEVERE WITHDRAWAL SX FROM HEROIN-ANXIETY,RESTLESSNESS,TEARY EYES,YAWNING,RUNNY NOSE. Allergies/Adverse Reactions: Allergies Allergy/AdvReac Type Severity Reaction Status Date / Time No Known Allergies Allergy Verified 10/14/17 12:38 History of Present Illness: 52 Y/O H/MALE WITH A HX OF HEROIN DEPENDENCE SEEKING DETOX [place]. Exam Limitations: No Limitations - Ebola screening Have you traveled outside of the country in the last 21 days: No (N) Have you had contact with anyone from an Ebola affected area: No Have you been sick,other than usual withdrawal symptoms: No Do you have a fever: No - Review of Systems Constitutional: Chills, Loss of Appetite, Night Sweats, Changes in sleep EENT: reports: Blurred Vision, Tearing, Nose Congestion Respiratory: reports: Shortness of Breath, Wheezing Cardiac: reports: Chest Tightness GI: reports: Constipated, Diarrhea, Nausea, Poor Appetite, Poor Fluid Intake, Vomiting, Abdominal cramping : reports: Dysuria Musculoskeletal: reports: Back Pain, Joint Pain, Muscle Pain Integumentary: reports: Bruising (IVD INJ SITES ON LOWER AND UPPER EXTREMITIES) Neuro: reports: Headache, Unsteady Gait Endocrine: reports: No Symptoms Reported Hematology: reports: No Symptoms Reported Psychiatric: reports: Orientated x3, Anxious Other Systems: Reviewed and Negative Patient History - Patient Medical History Hx Anemia: No Hx Asthma: Yes (MDI) Hx Chronic Obstructive Pulmonary Disease (COPD): No Hx Cancer: No Hx Cardiac Disorders: No Hx Congestive Heart Failure: No Hx Hypertension: No Hx Hypercholesterolemia: No Hx Pacemaker: No HX Cerebrovascular Accident: No Hx Seizures: No Hx Dementia: No Hx Diabetes: No Hx Gastrointestinal Disorders: No Hx Liver Disease: No Hx Genitourinary Disorders: No Hx Sexually Transmitted Disorders: No Hx Renal Disease (ESRD): No Hx Thyroid Disease: No Hx Human Immunodeficiency Virus (HIV): No (NEGATIVE HX) Hx Hepatitis C: No Hx Depression: No Hx Suicide Attempt: No (DENIES) Hx Bipolar Disorder: Yes (gives some hx. but not ever on medicated ) Hx Schizophrenia: No - Patient Surgical History Past Surgical History: Yes Hx Neurologic Surgery: No Hx Cataract Extraction: No Hx Cardiac Surgery: No Hx Lung Surgery: No Hx Breast Surgery: No Hx Breast Biopsy: No Hx Abdominal Surgery: No Hx Appendectomy: No Hx Cholecystectomy: No Hx Genitourinary Surgery: No Hx Section: No Hx Orthopedic Surgery: Yes (age 15, L knee surgery) Other Surgical History: L knee sx at age 15 yrs old Anesthesia Reaction: No - PPD History Previous Implant?: Yes Documented Results: Negative w/proof Implanted On Prior [facility] Admission?: Yes Date: 06/20/17 Results: 0 mm PPD to be Administered?: No - Reproductive History Patient is a Female of Child Bearing Age (11 -55 yrs old): No (MALE) - Smoking Cessation Smoking history: Current every day smoker Have you smoked in the past 12 months: Yes Aproximately how many cigarettes per day: 10 Cigars Per Day: 0 Hx Chewing Tobacco Use: No Initiated information on smoking cessation: Yes 'Breaking Loose' booklet given: 10/14/17 - Substance & Tx. History Hx Alcohol Use: No Hx Substance Use: Yes (HEROIN/COCAINE) Substance Use Type: Cocaine, Heroin Hx Substance Use Treatment: Yes - Substances Abused Heroin Route: Injection Frequency: Daily Amount used: 7 bags Age of first use: 12 Date of Last Use: 10/13/17 Cocaine Route: Injection Amount used: $50 Age of first use: 12 Date of Last Use: 10/13/17 Family Disease History - Family Disease History Family Disease History: Other: Father (etoh/drug abuse), Mother (etoh/drug abuse ) Admission Physical Exam BHS - Vital Signs Vital Signs: Vital Signs - 24 hr 10/14/17 11:56 Temperature 97.8 F Pulse Rate 65 Respiratory 18 Rate Blood Pressure 140/80 - Physical General Appearance: Yes: Moderate Distress, Irritable, Anxious HEENTM: Yes: EOMI, Normocephalic, DRE, Pharynx Normal Respiratory: Yes: Chest Non-Tender, Lungs Clear, Normal Breath Sounds, No Respiratory Distress Neck: Yes: Supple, Trachea in good position Breast: Yes: Breast Exam Deferred Cardiology: Yes: Regular Rhythm, Regular Rate, S1, S2 Abdominal: Yes: Normal Bowel Sounds, Non Tender, Soft Genitourinary: Yes: Other (N/C) Back: Yes: Within Normal Limits Musculoskeletal: Yes: full range of Motion, Gait Steady Extremities: Yes: Normal Range of Motion, Non-Tender, Other (IVD TRACK [place]) Neurological: Yes: bladder blower II-XII NML intact, Fully Oriented, Alert, Motor Strength 5/5 Integumentary: Yes: Dry, Warm, Track [place] (ON UPPER/LOWER EXTREMITIES, NO SWELLING OR REDNESS) Lymphatic: Yes: Within Normal Limits - Diagnostic (1) arthritis left knee Current Visit: Yes Status: Acute (2) Cocaine dependence Current Visit: Yes Status: Acute Qualifiers: Substance use status: uncomplicated Qualified Code(s): F14.20 - Cocaine dependence, uncomplicated (3) Nicotine dependence Current Visit: Yes Status: Acute Qualifiers: Nicotine product type: cigarettes Substance use status: in withdrawal Qualified Code(s): F17.213 - Nicotine dependence, cigarettes, with withdrawal (4) Opioid dependence with withdrawal Current Visit: Yes Status: Acute (5) Asthma Current Visit: Yes Status: Chronic Qualifiers: Asthma severity: mild Asthma persistence: intermittent Asthma complication type: uncomplicated Qualified Code(s): J45.20 - Mild intermittent asthma, uncomplicated (6) Low back pain Current Visit: Yes Status: Chronic (7) ambulation with cane Current Visit: Yes Status: Chronic (8) s/p artroscopic surgery left knee post trauma Current Visit: Yes Status: Chronic Cleared for Admission [facility] - Detox or Rehab [facility] Level of Care: Medically Managed Detox Regimen/Protocol: Methadone [facility] Breath Alcohol Content Breath Alcohol Content: 0 Urine Drug Screen - Results Drug Screen Negative: No Urine Drug Screen Results: JESUS MANUEL-Cocaine, OPI-Opiates
[2017-10-14] MEDS ORDERED: MENTHOL/PHENOL 1 EACH UD MM PRN (15:12)
[2017-10-14] MEDS ORDERED: ACETAMINOPHEN 325 MG TABLET (FP) PO PRN (15:12)
[2017-10-14] MEDS ORDERED: MAGNESIUM HYDROX 2400MG/30ML ORAL SUSPENSION 30 ML CUP PO PRN (15:12)
[2017-10-14] MEDS ORDERED: LOPERAMIDE HCL 2 MG CAPSULE PO PRN (15:12)
[2017-10-14] MEDS ORDERED: MAG HYDROX/AL HYDROX/SIMETH 30 ML UNIT-DOSE CUP PO PRN (15:12)
[2017-10-14] MEDS ORDERED: guaiFENesin/D-METHORPHAN HB 10 ML UNIT-DOSE CUPS PO PRN (15:12)
[2017-10-14] MEDS ORDERED: NICOTINE POLACRILEX 2 MG GUM BUC PRN (15:12)
[2017-10-14] MEDS ORDERED: MAGNESIUM CITRATE 300 ML BOTTLE PO PRN (15:12)
[2017-10-14] MEDS ORDERED: P-EPHED 60MG/TRIPROLIDI 2.5MG TABLET PO PRN (15:12)
[2017-10-14] MEDS ORDERED: ALBUTEROL SO4 18 GM HFA INHALER IH PRN (15:19)
[2017-10-14] MEDS ORDERED: METHADONE HCL 10 MG TABLET (FOR DETOX USE ONLY) PO ONE ×2 (15:30→23:00)
[2017-10-14] MEDS ORDERED: P-EPHED 60MG/TRIPROLIDI 2.5MG TABLET PO ONE (15:45)
[2017-10-14] MEDS: diazePAM 5 MG TABLET PO PRN ×2 (16:45→22:23)
[2017-10-14] MEDS: NICOTINE 14 MG/24 HOURS TOPICAL PATCH TD SCH (16:47)
[2017-10-14] MEDS: IBUPROFEN 400 MG TABLET (FP) PO PRN (20:00)
[2017-10-14] MEDS: cloNIDine HCL 0.1 MG TABLET PO SCH (22:23)
[2017-10-14] MEDS: THIAMINE HCL 100 MG TABLET (FP) PO SCH (22:23)
[2017-10-15 02:27] LABS: URINE APPEARANCE CLEAR; URINE BILIRUBIN NEGATIVE (<2.0 mg/dL); URINE BLOOD NEGATIVE (NEGATIVE); URINE COLOR LTYELLOW; URINE GLUCOSE (UA) NEGATIVE (NEGATIVE); URINE KETONE NEGATIVE (NEGATIVE); URINE LEUK ESTERASE NEGATIVE (NEGATIVE); URINE NITRITE NEGATIVE (NEGATIVE); URINE PROTEIN NEGATIVE (NEGATIVE); URINE UROBILINOGEN NEGATIVE mg/dL (0.2-1.0)
[2017-10-15] MEDS: CYCLOBENZAPRINE HCL 10 MG TABLET (FP) PO PRN ×2 (03:47→22:24)
[2017-10-15] MEDS: IBUPROFEN 400 MG TABLET (FP) PO PRN (03:47)
[2017-10-15] MEDS: diazePAM 5 MG TABLET PO PRN ×3 (03:47→22:24)
--- NOTE | 2017-10-15 08:57 | CONSULT ---
[facility] Psychiatric Consult - Data Date of interview: 10/15/17 Admission source: [facility] Identifying data: Patient is a 53 year old single male, without kids, unemployed (receiving welfare), and currently homeless. This is one of multiple admissions for patient. Pt. admitted to for opiate and cocaine dependence. Substance Abuse History: Smoking Cessation. Smoking history: Current every day smoker. Have you smoked in the past 12 months: Yes. Aproximately how many cigarettes per day: 10. Cigars Per Day: 0. Hx Chewing Tobacco Use: No. Initiated information on smoking cessation: Yes. 'Breaking Loose' booklet given : 10/14/17. - Substance & Tx. History. Hx Alcohol Use: No. Hx Substance Use: Yes (HEROIN/COCAINE). Substance Use Type: Cocaine, Heroin. Hx Substance Use Treatment: Yes. - Substances Abused. Heroin. Route: Injection. Frequency : Daily. Amount used: 7 bags. Age of first use: 12. Date of Last Use: . Cocaine. Route: Injection. Amount used: $50. Age of first use: 12. Date of Last Use: 10/13/17 Medical History: L knee sx at age 15 yrs old, Asthma Psychiatric History: Patient denies h/o psychiatric hospitalization, outpatient care and suicide attempt. Patient is unreliable. As per previous records, patient has a history of schizoaffective disorder and has had multiple psychiatric hospitalizations. Pt. with a h/o nonadherence to medications and outpatient care. Pt. has been prescribed zoloft and seroquel in the past but has not taken medications in several years. Physical/Sexual Abuse/Trauma History: Denies. Mental Status Exam - Mental Status Exam Alert and Oriented to: Time, Place, Person Cognitive Function: Good Patient Appearance: Well Groomed Mood: Withdrawn Affect: Mood Congruent Patient Behavior: Guarded Speech Pattern: Appropriate Voice Loudness: Moderately Soft/Quiet Thought Process: Goal Oriented Thought Disorder: Not Present Hallucinations: Denies Suicidal Ideation: Denies Homicidal Ideation: Denies Insight/Judgement: Poor Sleep: Fair Appetite: Fair Muscle strength/Tone: Normal Gait/Station: Normal Psychiatric Findings - Problem List ([place] 1, 2,3) (1) Cocaine dependence Current Visit: Yes Status: Acute Qualifiers: Substance use status: uncomplicated Qualified Code(s): F14.20 - Cocaine dependence, uncomplicated (2) Nicotine dependence Current Visit: Yes Status: Acute Qualifiers: Nicotine product type: cigarettes Substance use status: in withdrawal Qualified Code(s): F17.213 - Nicotine dependence, cigarettes, with withdrawal (3) Opioid dependence with withdrawal Current Visit: Yes Status: Acute (4) Schizoaffective disorder Current Visit: No Status: Suspected Qualifiers: Schizoaffective disorder type: bipolar Qualified Code(s): F25.0 - Schizoaffective disorder, bipolar type (5) Substance induced mood disorder Current Visit: Yes Status: Acute - Initial Treatment Plan Initial Treatment Plan: Psychoeducation provided. Detoxification in progress. Observation.
[2017-10-15] MEDS ORDERED: METHADONE HCL 10 MG TABLET (FOR DETOX USE ONLY) PO ONE (10:00)
[2017-10-15 10:21] LABS: HEMATOCRIT 34.2 % (35.4-49); HEMOGLOBIN 11.8 GM/dL (11.7-16.9); MCH 30.8 pg (25.7-33.7); MCHC 34.5 g/dl (32.0-35.9); MEAN CELL VOLUME 89.1 fl (80-96); PLATELET COUNT 154 K/MM3 (134-434); RBC 3.84 M/mm3 (4.00-5.60); RDW 14.8 % (11.9-15.9); WHITE BLOOD COUNT 4.2 K/mm3 (4.0-10.0)
[2017-10-15] MEDS: cloNIDine HCL 0.1 MG TABLET PO SCH ×2 (10:35→22:24)
[2017-10-15] MEDS: PRENATAL VITAMINS W/ FOLIC ACID TABLET (FP) PO SCH (10:35)
[2017-10-15] MEDS: NICOTINE 14 MG/24 HOURS TOPICAL PATCH TD SCH (10:37)
--- NOTE | 2017-10-15 11:33 | PN ---
S CIWA - CIWA Score Nausea/Vomitin Muscle Tremors: 3 Anxiety: 3 Agitation: 3 Paroxysmal Sweats: 1-Minimal Palms Moist Orientation: 0-Oriented Tacttile Disturbances: 1-Very Mild Itch/Numbness Auditory Disturbances: 1-Very Mild Visual Disturbances: 0-None Headache: 2-Mild CIWA-Ar Total Score: 17 BHS Progress Note (SOAP) Subjective: alert,irritable,anxious,interrupted sleep,tremor,pain in the body and back Objective: 10/15/17 11:31 Vital Signs Temperature 98.1 F 10/15/17 09:20 Pulse Rate 70 10/15/17 09:20 Respiratory Rate 18 10/15/17 09:20 Blood Pressure 140/74 10/15/17 09:20 O2 Sat by Pulse Oximetry (%) ekg nsr,normal ecg qt 406/412 no chest pain,no sob,no dizziness Laboratory Last Values WBC 4.2 K/mm3 (4.0-10.0) 10/15/17 06:00 RBC 3.84 M/mm3 (4.00-5.60) L 10/15/17 06:00 Hgb 11.8 GM/dL (11.7-16.9) 10/15/17 06:00 Hct 34.2 % (35.4-49) L 10/15/17 06:00 MCV 89.1 fl (80-96) 10/15/17 06:00 MCH 30.8 pg (25.7-33.7) 10/15/17 06:00 MCHC 34.5 g/dl (32.0-35.9) 10/15/17 06:00 RDW 14.8 % (11.9-15.9) 10/15/17 06:00 Plt Count 154 K/MM3 (134-434) 10/15/17 06:00 MPV 9.0 fl (7.5-11.1) 10/15/17 06:00 Urine Color Ltyellow 10/14/17 Unknown Urine Appearance Clear 10/14/17 Unknown Urine pH 6.0 (5.0-8.0) 10/14/17 Unknown Ur Specific [place] 1.018 (1.001-1.035) 10/14/17 Unknown Urine Protein Negative (NEGATIVE) 10/14/17 Unknown Urine Glucose (UA) Negative (NEGATIVE) 10/14/17 Unknown Urine Ketones Negative (NEGATIVE) 10/14/17 Unknown Urine Blood Negative (NEGATIVE) 10/14/17 Unknown Urine Nitrite Negative (NEGATIVE) 10/14/17 Unknown Urine Bilirubin Negative (<2.0 mg/dL) 10/14/17 Unknown Urine Urobilinogen Negative mg/dL (0.2-1.0) 10/14/17 Unknown Ur Leukocyte Esterase Negative (NEGATIVE) 10/14/17 Unknown labs pending Assessment: 10/15/17 11:32 withdrawal symptom Plan: continue detox
[2017-10-15 11:57] LABS: CHLORIDE 105 mmol/L (98-107); POTASSIUM 4.5 mmol/L (3.5-5.1); SODIUM 136 mmol/L (136-145)
[2017-10-15 12:34] LABS: ALBUMIN 3.7 g/dl (3.4-5.0); ALK PHOS 93 U/L (45-117); ANION GAP 11 (8-16); BILIRUBIN,TOTAL 0.4 mg/dL (0.2-1.0); BLOOD UREA NITROGEN 21 mg/dL (7-18); CALCIUM 8.7 mg/dL (8.5-10.1); CO2 20 mmol/L (21-32); CREATININE 1.1 mg/dL (0.7-1.3); GLUCOSE,RANDOM 85 mg/dL (74-106); SGOT/AST 27 U/L (15-37); SGPT/ALT 22 U/L (12-78); TOT PROT 7.8 g/dl (6.4-8.2)
--- NOTE | 2017-10-15 18:00 | EKG ---
Test Reason : Blood Pressure : / mmHG Vent. Rate : 062 BPM Atrial Rate : 062 BPM P-R Int : 182 ms QRS Dur : 088 ms QT Int : 406 ms P-R-T Axes : 045 073 065 degrees QTc Int : 412 ms NORMAL SINUS RHYTHM NORMAL ECG WHEN COMPARED WITH ECG OF 12-AUG-2017 15:05, NO SIGNIFICANT CHANGE WAS FOUND Confirmed by MD RUBY, VANDANA ([id number]) on 10/15/2017 6:00:14 PM Referred By: Confirmed By:VANDANA BELTRAN MD
[2017-10-15] MEDS: THIAMINE HCL 100 MG TABLET (FP) PO SCH (22:24)
[2017-10-16] MEDS: MELATONIN 5 MG TABLETS PO PRN ×2 (01:52→23:58)
[2017-10-16] MEDS: diazePAM 5 MG TABLET PO PRN ×3 (05:18→22:42)
[2017-10-16] MEDS: IBUPROFEN 400 MG TABLET (FP) PO PRN ×2 (05:21→13:37)
[2017-10-16] MEDS: CYCLOBENZAPRINE HCL 10 MG TABLET (FP) PO PRN ×2 (05:21→13:37)
[2017-10-16] MEDS ORDERED: METHADONE HCL 5 MG TABLET (FOR DETOX USE ONLY) PO ONE (10:00)
[2017-10-16] MEDS: cloNIDine HCL 0.1 MG TABLET PO SCH ×2 (10:46→22:42)
[2017-10-16] MEDS: NICOTINE 14 MG/24 HOURS TOPICAL PATCH TD SCH (10:46)
[2017-10-16] MEDS: PRENATAL VITAMINS W/ FOLIC ACID TABLET (FP) PO SCH (10:46)
--- NOTE | 2017-10-16 11:41 | PN ---
BHS COWS - Scale Resting Pulse: 0= [place] 80 or Below Sweatin= Chills/Flushing Restless Observation: 3= Extraneous Movement Pupil Size: 1= Pupils >than Normal Bone or Joint Aches: 2= Severe Diffuse Aches Runny Nose/ Eye Tearin= Runny Nose/Eyes GI Upset > 30mins: 2= Nausea/Diarrhea Tremor Observation of Outstretched Hands: 2= Slight Tremor Visible Yawning Observation: 1= 1-2x During Session Anxiety or Irritability: 2=Irritable/Anxious Goose Flesh Skin: 0=Smooth Skin COWS Score: 16 S Progress Note (SOAP) Subjective: alert,irritable,anxious,interrupted sleep,pain in the body and back Objective: 10/16/17 11:39 Vital Signs Temperature 98.1 F 10/16/17 09:39 Pulse Rate 70 10/16/17 09:39 Respiratory Rate 20 10/16/17 09:39 Blood Pressure 148/81 10/16/17 09:39 O2 Sat by Pulse Oximetry (%) Laboratory Last Values WBC 4.2 K/mm3 (4.0-10.0) 10/15/17 06:00 RBC 3.84 M/mm3 (4.00-5.60) L 10/15/17 06:00 Hgb 11.8 GM/dL (11.7-16.9) 10/15/17 06:00 Hct 34.2 % (35.4-49) L 10/15/17 06:00 MCV 89.1 fl (80-96) 10/15/17 06:00 MCH 30.8 pg (25.7-33.7) 10/15/17 06:00 MCHC 34.5 g/dl (32.0-35.9) 10/15/17 06:00 RDW 14.8 % (11.9-15.9) 10/15/17 06:00 Plt Count 154 K/MM3 (134-434) 10/15/17 06:00 MPV 9.0 fl (7.5-11.1) 10/15/17 06:00 Sodium 136 mmol/L (136-145) 10/15/17 06:00 Potassium 4.5 mmol/L (3.5-5.1) 10/15/17 06:00 Chloride 105 mmol/L (98-107) 10/15/17 06:00 Carbon Dioxide 20 mmol/L (21-32) L D 10/15/17 06:00 Anion Gap 11 (8-16) 10/15/17 06:00 BUN 21 mg/dL (7-18) H 10/15/17 06:00 Creatinine 1.1 mg/dL (0.7-1.3) 10/15/17 06:00 Creat Clearance w eGFR > 60 (>60) 10/15/17 06:00 Random Glucose 85 mg/dL (74-106) D 10/15/17 06:00 Calcium 8.7 mg/dL (8.5-10.1) 10/15/17 06:00 Total Bilirubin 0.4 mg/dL (0.2-1.0) D 10/15/17 06:00 AST 27 U/L (15-37) 10/15/17 06:00 ALT 22 U/L (12-78) 10/15/17 06:00 Alkaline Phosphatase 93 U/L (45-117) 10/15/17 06:00 Total Protein 7.8 g/dl (6.4-8.2) 10/15/17 06:00 Albumin 3.7 g/dl (3.4-5.0) 10/15/17 06:00 Urine Color Ltyellow 10/14/17 Unknown Urine Appearance Clear 10/14/17 Unknown Urine pH 6.0 (5.0-8.0) 10/14/17 Unknown Ur Specific [place] 1.018 (1.001-1.035) 10/14/17 Unknown Urine Protein Negative (NEGATIVE) 10/14/17 Unknown Urine Glucose (UA) Negative (NEGATIVE) 10/14/17 Unknown Urine Ketones Negative (NEGATIVE) 10/14/17 Unknown Urine Blood Negative (NEGATIVE) 10/14/17 Unknown Urine Nitrite Negative (NEGATIVE) 10/14/17 Unknown Urine Bilirubin Negative (<2.0 mg/dL) 10/14/17 Unknown Urine Urobilinogen Negative mg/dL (0.2-1.0) 10/14/17 Unknown Ur Leukocyte Esterase Negative (NEGATIVE) 10/14/17 Unknown RPR Titer Nonreactive (NONREACTIVE) 10/15/17 06:00 10/16/17 11:40 lab pending Assessment: 10/16/17 11:41 withdrawal symptom Plan: continue detox
[2017-10-16] MEDS: THIAMINE HCL 100 MG TABLET (FP) PO SCH (22:42)
[2017-10-17] MEDS: diazePAM 5 MG TABLET PO PRN ×3 (01:57→14:47)
[2017-10-17] MEDS ORDERED: METHADONE HCL 5 MG TABLET (FOR DETOX USE ONLY) PO ONE (10:00)
[2017-10-17] MEDS: CYCLOBENZAPRINE HCL 10 MG TABLET (FP) PO PRN ×2 (10:37→22:45)
[2017-10-17] MEDS: PRENATAL VITAMINS W/ FOLIC ACID TABLET (FP) PO SCH (10:37)
[2017-10-17] MEDS: cloNIDine HCL 0.1 MG TABLET PO SCH ×2 (10:38→22:45)
[2017-10-17] MEDS: NICOTINE 14 MG/24 HOURS TOPICAL PATCH TD SCH (10:38)
--- NOTE | 2017-10-17 11:06 | PN ---
S Progress Note (SOAP) Subjective: alert,irritable,anxious,interrupted sleep,back pain Objective: 10/17/17 11:05 Vital Signs Temperature 97.7 F 10/17/17 09:17 Pulse Rate 68 10/17/17 09:17 Respiratory Rate 18 10/17/17 09:17 Blood Pressure 129/76 10/17/17 09:17 O2 Sat by Pulse Oximetry (%) Assessment: 10/17/17 11:05 withdrawal symptom Plan: continue detox,lidoderm patch
[2017-10-17] MEDS: LIDOCAINE 5% TOPICAL PATCH TP SCH (11:10)
[2017-10-17] MEDS: THIAMINE HCL 100 MG TABLET (FP) PO SCH (22:45)
[2017-10-17] MEDS: LIDOCAINE PATCH REMOVAL MC SCH (22:47)
[2017-10-18] MEDS ORDERED: METHADONE HCL 10 MG TABLET (FOR DETOX USE ONLY) PO ONE (10:00)
[2017-10-18] MEDS: NICOTINE 14 MG/24 HOURS TOPICAL PATCH TD SCH (11:05)
[2017-10-18] MEDS: LIDOCAINE 5% TOPICAL PATCH TP SCH (11:05)
[2017-10-18] MEDS: PRENATAL VITAMINS W/ FOLIC ACID TABLET (FP) PO SCH (11:05)
[2017-10-18] MEDS: cloNIDine HCL 0.1 MG TABLET PO SCH ×2 (11:05→22:32)
[2017-10-18] MEDS: CYCLOBENZAPRINE HCL 10 MG TABLET (FP) PO PRN (11:05)
--- NOTE | 2017-10-18 12:27 | PN ---
S Progress Note (SOAP) Subjective: alert,irritable,anxious,interrupted sleep,back pain Objective: 10/18/17 12:25 Vital Signs Temperature 97.5 F L 10/18/17 11:36 Pulse Rate 75 10/18/17 11:36 Respiratory Rate 18 10/18/17 11:36 Blood Pressure 119/65 10/18/17 11:36 O2 Sat by Pulse Oximetry (%) Assessment: 10/18/17 12:26 withdrawal symptom Plan: continue detox,stated loss his cane,cane for ambulatory aid,discharge in am
[2017-10-18] MEDS: THIAMINE HCL 100 MG TABLET (FP) PO SCH (22:32)
[2017-10-18] MEDS: LIDOCAINE PATCH REMOVAL MC SCH (22:48)
[2017-10-18 23:07] VITALS: BP 107/76; PULSE 68; TEMP 97.3
[2017-10-19] MEDS: MELATONIN 5 MG TABLETS PO PRN (00:28)
[2017-10-19] MEDS ORDERED: METHADONE HCL 5 MG TABLET (FOR DETOX USE ONLY) PO ONE (06:00)
--- NOTE | 2017-10-19 08:23 | PN ---
S Progress Note (SOAP) Subjective: alert,no complaint Objective: 10/19/17 08:18 Vital Signs Temperature 97.3 F L 10/18/17 23:06 Pulse Rate 68 10/18/17 23:06 Respiratory Rate 20 10/18/17 23:06 Blood Pressure 107/76 10/18/17 23:06 O2 Sat by Pulse Oximetry (%) Assessment: 10/19/17 08:19 detox completed,no withdrawal symptom Plan: discharge today,follow up with after care program as arrangement
--- NOTE | 2017-10-19 08:28 | DS ---
[facility] Detox Discharge Summary Admission Date: 10/14/17 Discharge Date: 10/19/17 - History Present History: Cocaine Dependence, Opioid Dependence Additional Comments: follow up with after care program as arrangement Pertinent Past History: asthma nicotine dependence arthritis left knee ambulation with cane - Physical Exam Results Vital Signs: Vital Signs Temperature 97.3 F L 10/18/17 23:06 Pulse Rate 68 10/18/17 23:06 Respiratory Rate 20 10/18/17 23:06 Blood Pressure 107/76 10/18/17 23:06 O2 Sat by Pulse Oximetry (%) Pertinent Admission Physical Exam Findings: withdrawal signs and symptom Laboratory Last Values WBC 4.2 K/mm3 (4.0-10.0) 10/15/17 06:00 RBC 3.84 M/mm3 (4.00-5.60) L 10/15/17 06:00 Hgb 11.8 GM/dL (11.7-16.9) 10/15/17 06:00 Hct 34.2 % (35.4-49) L 10/15/17 06:00 MCV 89.1 fl (80-96) 10/15/17 06:00 MCH 30.8 pg (25.7-33.7) 10/15/17 06:00 MCHC 34.5 g/dl (32.0-35.9) 10/15/17 06:00 RDW 14.8 % (11.9-15.9) 10/15/17 06:00 Plt Count 154 K/MM3 (134-434) 10/15/17 06:00 MPV 9.0 fl (7.5-11.1) 10/15/17 06:00 Sodium 136 mmol/L (136-145) 10/15/17 06:00 Potassium 4.5 mmol/L (3.5-5.1) 10/15/17 06:00 Chloride 105 mmol/L (98-107) 10/15/17 06:00 Carbon Dioxide 20 mmol/L (21-32) L D 10/15/17 06:00 Anion Gap 11 (8-16) 10/15/17 06:00 BUN 21 mg/dL (7-18) H 10/15/17 06:00 Creatinine 1.1 mg/dL (0.7-1.3) 10/15/17 06:00 Creat Clearance w eGFR > 60 (>60) 10/15/17 06:00 Random Glucose 85 mg/dL (74-106) D 10/15/17 06:00 Calcium 8.7 mg/dL (8.5-10.1) 10/15/17 06:00 Total Bilirubin 0.4 mg/dL (0.2-1.0) D 10/15/17 06:00 AST 27 U/L (15-37) 10/15/17 06:00 ALT 22 U/L (12-78) 10/15/17 06:00 Alkaline Phosphatase 93 U/L (45-117) 10/15/17 06:00 Total Protein 7.8 g/dl (6.4-8.2) 10/15/17 06:00 Albumin 3.7 g/dl (3.4-5.0) 10/15/17 06:00 Urine Color Ltyellow 10/14/17 Unknown Urine Appearance Clear 10/14/17 Unknown Urine pH 6.0 (5.0-8.0) 10/14/17 Unknown Ur Specific [place] 1.018 (1.001-1.035) 10/14/17 Unknown Urine Protein Negative (NEGATIVE) 10/14/17 Unknown Urine Glucose (UA) Negative (NEGATIVE) 10/14/17 Unknown Urine Ketones Negative (NEGATIVE) 10/14/17 Unknown Urine Blood Negative (NEGATIVE) 10/14/17 Unknown Urine Nitrite Negative (NEGATIVE) 10/14/17 Unknown Urine Bilirubin Negative (<2.0 mg/dL) 10/14/17 Unknown Urine Urobilinogen Negative mg/dL (0.2-1.0) 10/14/17 Unknown Ur Leukocyte Esterase Negative (NEGATIVE) 10/14/17 Unknown RPR Titer Nonreactive (NONREACTIVE) 10/15/17 06:00 HIV 1&2 Antibody Screen Negative 10/14/17 06:00 HIV P24 Antigen Negative 10/14/17 06:00 Vital Signs Temperature 97.3 F L 10/18/17 23:06 Pulse Rate 68 10/18/17 23:06 Respiratory Rate 20 10/18/17 23:06 Blood Pressure 107/76 10/18/17 23:06 O2 Sat by Pulse Oximetry (%) - Treatment Hospital Course: Detox Protocol Followed, Detoxed Safely, Responded well, Discharged Condition Good Patient has Accepted a Rehab Referral to: declined - Medication Discharge Medications: Ambulatory Orders Albuterol Sulfate Inhaler - [Ventolin Hfa Inhaler -] 2 inh PO Q4H PRN 06/19/17 - Diagnosis (1) Opioid dependence with withdrawal Status: Acute (2) Cocaine dependence Status: Acute Qualifiers: Substance use status: uncomplicated Qualified Code(s): F14.20 - Cocaine dependence, uncomplicated (3) Nicotine dependence Status: Acute Qualifiers: Nicotine product type: cigarettes Substance use status: in withdrawal Qualified Code(s): F17.213 - Nicotine dependence, cigarettes, with withdrawal (4) arthritis left knee Status: Acute (5) Asthma Status: Chronic Qualifiers: Asthma severity: mild Asthma persistence: intermittent Asthma complication type: uncomplicated Qualified Code(s): J45.20 - Mild intermittent asthma, uncomplicated (6) Low back pain Status: Chronic (7) ambulation with cane Status: Chronic (8) s/p artroscopic surgery left knee post trauma Status: Chronic - AMA Did Patient Leave Against Medical Advice: No
== END 2017-10-19 04:45 | disposition home or self-care (01) | DRG 773 ==
LOC: YASAS 11:11 → Y6N 15:28
PROVIDERS: ADMIT Surgery; ATTEND Surgery
PROC: HZ2ZZZZ Detoxification Services for Substance Abuse Treatment (ICD-10-PCS; principal; 2017-10-14)
DX: F11.23 Opioid dependence with withdrawal (principal); F14.20 Cocaine dependence, uncomplicated; F17.213 Nicotine dependence, cigarettes, with withdrawal; F25.9 Schizoaffective disorder, unspecified; F19.24 Other psychoactive substance dependence with psychoactive substance-induced mood disorder; J45.20 Mild intermittent asthma, uncomplicated; M13.862 Other specified arthritis, left knee; M54.5 Low back pain; R26.2 Difficulty in walking, not elsewhere classified; Z99.89 Dependence on other enabling machines and devices
CPT/HCPCS: 36415; 80053; 81003; 85027; 86593; 87389; 93005; 93010; J0735